=== PATIENT | female | born 1955 | race Hispanic/Latino ===

== ENCOUNTER 2016-11-01 16:42 | Inpatient (IN) | payer MEDICARE, MEDICAID ==
[2016-11-01 18:48] VITALS: BMI 28.9
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
[2016-11-01] MEDS: Acetylcysteine 20% Inhal Soln (4ml) IH SCH (19:37)
[2016-11-01] MEDS: Levalbuterol 0.63 MG/3 ML Inhal Soln UD IH SCH (19:37)
[2016-11-02] MEDS: Acetylcysteine 20% Inhal Soln (4ml) IH SCH ×5 (00:08→20:26)
[2016-11-02] MEDS: Levalbuterol 0.63 MG/3 ML Inhal Soln UD IH SCH ×5 (00:09→20:26)
[2016-11-02 07:30] LABS: HEMATOCRIT 36.8 % (34.0-47.0); MEAN CORPUSCULAR HGB CONC 34.4 g/dL (33.0-37.0); RED CELL DISTRIBUTION WIDTH 14.5 % (11.5-14.5); WHITE BLOOD COUNT 10.7 K/uL (4.8-10.8)
[2016-11-02 07:37] LABS: CALCIUM 9.6 mg/dL (8.4-10.2); POTASSIUM 3.9 MMOL/L (3.6-5.0)
[2016-11-02] MEDS: Magnesium Oxide 400 mg Tab UD PO SCH (08:11)
--- NOTE | 2016-11-02 13:23 | CP.PCM.PN ---
Subjective - Date & Time of Evaluation Date of Evaluation: 11/02/16 Time of Evaluation: 12:00 - Subjective Subjective: no acute complaints at present Objective - Vital Signs/Intake and Output Vital Signs (last 24 hours): Temp Pulse Resp BP Pulse Ox 97.9 F 80 20 120/58 L 96 11/01/16 20:34 11/02/16 08:57 11/01/16 20:34 11/02/16 13:08 11/02/16 08:57 - Medications Medications: Current Medications Acetaminophen (Tylenol 325mg Tab) 650 mg PO Q6 PRN PRN Reason: Fever >100.4 F Acetaminophen (Tylenol 325mg Tab) 650 mg PO Q6 PRN PRN Reason: .Pain (scale 4-10) or Headache Last Admin: 11/01/16 22:24 Dose: 650 mg Acetylcysteine (Acetylcysteine 20%) 4 ml IH RQ6 [facility] Last Admin: 11/02/16 07:22 Dose: Not Given Alprazolam (Xanax) 0.25 mg PO Q12 [facility] Stop: 11/08/16 19:11 Last Admin: 11/02/16 08:14 Dose: 0.25 mg Amlodipine Besylate (Norvasc) 5 mg PO DAILY [facility] Last Admin: 11/02/16 08:15 Dose: 5 mg Atorvastatin Calcium (Lipitor) 40 mg PO HS [facility] Last Admin: 11/01/16 21:53 Dose: 40 mg Cholecalciferol (Vitamin D) 2,000 iu PO DAILY [facility] Last Admin: 11/02/16 08:11 Dose: 2,000 iu Clonidine HCl (Catapres) 0.1 mg PO Q12 [facility] Last Admin: 11/02/16 10:00 Dose: 0.1 mg Hydralazine HCl (Apresoline) 100 mg PO Q8 [facility] Last Admin: 11/02/16 13:08 Dose: 100 mg Levalbuterol HCl (Xopenex) 0.63 mg IH RQ6 [facility] Last Admin: 11/02/16 07:22 Dose: Not Given Levetiracetam (Keppra) 500 mg PO BID [facility] Last Admin: 11/02/16 08:10 Dose: 500 mg Magnesium Oxide (Mag-Ox) 400 mg PO DAILY [facility] Last Admin: 11/02/16 08:11 Dose: 400 mg Metoprolol Tartrate (Lopressor) 25 mg PO Q12 [facility] Last Admin: 11/02/16 08:15 Dose: 25 mg - Labs Labs: 11/02/16 06:25 11/02/16 06:25 - Head Exam Head Exam: ATRAUMATIC, NORMAL INSPECTION, NORMOCEPHALIC - Eye Exam Eye Exam: EOMI, Normal appearance, PERRL Pupil Exam: NORMAL ACCOMODATION - ENT Exam ENT Exam: Mucous Membranes Moist, Normal Exam - Respiratory Exam Respiratory Exam: NORMAL BREATHING PATTERN - Cardiovascular Exam Cardiovascular Exam: REGULAR RHYTHM - GI/Abdominal Exam GI & Abdominal Exam: Soft, Normal Bowel Sounds - Exam External exam: NORMAL EXTERNAL EXAM - Extremities Exam Extremities Exam: Normal Capillary Refill - Back Exam Back Exam: NORMAL INSPECTION - Neurological Exam Neurological Exam: Alert, Awake Neuro motor strength exam: Left Upper Extremity: 3, Right Upper Extremity: 3, Left Lower Extremity: 3, Right Lower Extremity: 3 - Psychiatric Exam Psychiatric exam: Normal Affect, Normal Mood - Skin Skin Exam: Dry, Intact, Normal Color Assessment and Plan (1) Abdominal pain Status: Acute (2) Altered mental state Status: Acute (3) Intracranial hemorrhage Assessment & Plan: Pt, Ot therapy and plan of care and rec therapy Status: Acute (4) Leukocytosis Status: Acute (5) NSTEMI (non-ST elevated myocardial infarction) Status: Acute (6) Chronic obstructive lung disease Status: Chronic (7) Syncope Status: Suspected Physiatry Overall Plan of Care - Overall Plan of Care Estimated Length of Stay in Weeks: 2 Rehab Impairment: Mobility, Gait, Cognition, Balance, Coordination Etiologic Diagnosis: Other Rehab/Medical Prognosis: Fair - Anticipated Interventions Physical Therapy:: Yes Occupational Therapy:: Yes Speech Therapy:: Yes Recreational Therapy:: Yes Other Anticipated Intervention:: Yes - Therapy Goals Bed Mobility: Independent Ambulation: Independent Functional Positional Changes:: Independent - Discharge Plan Discharge Destination: Home
--- NOTE | 2016-11-02 17:51 | PN ---
DATE: Please verify the document type. PHYSIATRY CONSULTATION SUBJECTIVE: The patient is a friendly 61-year-old female admitted for acute inpatient rehab program. The patient with the diagnosis of intracranial hemorrhage, ICD code of 02.9, history of COPD, rhabdomyolysis, also NSTEMI, coronary artery disease, hypertension, low back pain, depression, diverticulitis. ALLERGIES: TO CORTISONE AND ZOLPIDEM. SOCIAL HISTORY: No history of drinking. No history of smoking. FAMILY HISTORY: Noncontributory. FUNCTIONAL STATUS: The patient is living alone in apartment with five steps to enter, had home healthy aid to assist with ADLs. MEDICATIONS: As per medical physician. REVIEW OF SYSTEMS: GENERAL: The patient is alert, able to follow commands. No acute distress. VITAL SIGNS: Stable. NECK: Supple. CHEST: Symmetrical. HEART: Sounds S1 and S2. ABDOMEN: Benign. EXTREMITIES: No clubbing, cyanosis or edema. NEUROLOGIC: The patient is alert, able to follow commands. Cranial nerves II and XII grossly intact. Motor both upper, both lower extremities. Tone normal range motion as functional. Muscle strength is good. Sensation to pin prick and light touch intact. Deep tendon reflexes 2+ bilaterally. Other systems are negative. IMPRESSION: Intracranial hemorrhage, ICD code of 02.9, chronic obstructive pulmonary disease, coronary artery disease, hypertension, gait difficulty, depression, diverticulosis. PLAN: The patient is physical therapy, occupational therapy, recreational therapy, speech therapy. Estimated length of stay for this patient is 2-3 weeks and has better discharge plan, he is to go back to live at home with supportive services, goals, independent to supervision for the patient write further overall plan of care. Keron Wilson MD
[2016-11-03] MEDS: Acetylcysteine 20% Inhal Soln (4ml) IH SCH ×4 (01:35→19:13)
[2016-11-03] MEDS: Levalbuterol 0.63 MG/3 ML Inhal Soln UD IH SCH ×4 (01:36→19:13)
[2016-11-03] MEDS: Magnesium Oxide 400 mg Tab UD PO SCH (08:44)
--- NOTE | 2016-11-03 12:14 | PSY.TMCNF ---
Nursing - Vital Signs Vital Signs (Last 8 hours): Vital Signs 11/03/16 11/03/16 11/03/16 05:31 08:26 08:44 Pulse Rate 60 73 73 Respiratory 18 Rate Blood Pressure 136/60 147/81 147/81 O2 Sat by Pulse Oximetry 11/03/16 11/03/16 08:45 08:57 Pulse Rate 74 Respiratory Rate Blood Pressure 147/81 O2 Sat by Pulse 97 Oximetry Pain: 2 - Medications/Other Issues Comment: To follow as per nutrition protocol - Bladder Management Bladder Pattern: Normal Voiding Method: Toilet - Bowel Management Bowel Pattern: Normal - Goals/Time Frame Comments: Pt was seen awake and alert laying in bed. Pt agreeable to receive visit. Pt reported that she is very cold and at times was shivering. Earlier during therapy session, pt refused sweatshirt as pt reported, "It smelt weird." Pt had two blankets wrapped around her as well. Pt was able to initiate minimal leisure interests as pt reported all she does at home is watch television. Pt reported that she is having difficulty seeing anything as her reading glasses are missing. Pt continued to state, "It is frustrated not remembering a lot of things." Pt presented with flat affect although engaged in discussion throughout visit. Physical Therapy - Bed Mobility Bed Mobility: Verbal Cues, Minimal Assistance - Transfers Sit to Stand: Verbal Cues, Contact Guard, Minimal Assistance - Ambulation Level of Assistance: Minimal Assistance Distance (ft.): 75 Assistive Devices: Rolling Walker - Stair Negotiation Stairs: Level of Assistance: Verbal Cues, Minimal Assistance Handrails: Bilateral - Standing Balance Static Stand: Contact Guard Assist Dynamic Stand: Minimal Assistance - Pain Management Techniques: Medication - Insight/Carryover Insight/Carryover: Fair - Patient/Family Education Comment: Pt education provided for improved safety awareness and proper techniques during functional mobility skills - Assessment/Plan Assessment: Pt was oriented to the benefits and purpose of participating in recreation therapy sessions throughout stay on unit. Pt presents with anxiety, decrease mood state, and stated that she has deficits with memory. Pt would benefit from recreation therapy sessions to improve mood state and leisure awareness level. - Goals Goals: Transfers with CGA. UB dressing with CGA. LB dressing with ModA - Provider Therapist: anselmo License Number: [id number] Occupational Therapy - Arousal/Attention/Orientation Patient Orientation: Person, Place, Time, Appropriate to Age, Appropriate to Situation - ADL/IADL Self Feeding: Supervision, Set-up Help Grooming: Minimal Assistance Dressing-Upper Extremity: Minimal Assistance, Moderate Assistance Dressing-Lower Extremity: Maximum Assistance - Sitting Balance Static Sitting: Supervision Dynamic Sitting: Requires supervision - Transfers Wheelchair to Bed Transfers: Minimal Assistance Toilet Transfers: Minimal Assistance - Pain Alleviating Techniques: Medication - Insight/Carryover Insight/Carryover: Fair - Patient/Family Education Comment: Pt education provided for improved safety awareness and proper techniques during functional mobility skills - Assessment/Plan Assessment: Pt was oriented to the benefits and purpose of participating in recreation therapy sessions throughout stay on unit. Pt presents with anxiety, decrease mood state, and stated that she has deficits with memory. Pt would benefit from recreation therapy sessions to improve mood state and leisure awareness level. - Goals Goals: Transfers with CGA. UB dressing with CGA. LB dressing with ModA - Provider Therapist: Richar PARKER/aBiley License Number: [id number] Speech Therapy - Consult Information Patient on Program: Yes Medical Diagnosis: ICH Treatment Diagnosis: mild cognitive deficits - Assessment Problem Solving Impairment: Mild Memory Impairment: Mild - Plan Assessment: Pt was oriented to the benefits and purpose of participating in recreation therapy sessions throughout stay on unit. Pt presents with anxiety, decrease mood state, and stated that she has deficits with memory. Pt would benefit from recreation therapy sessions to improve mood state and leisure awareness level. - Provider Therapist: Coreen Amaral License Number: [id number] Recreational Therapy - Participation Participation: Monitors His/Her Own Leisure Time - Attendance Attendance: Daily - Activities Leisure Activities: Television - Socialization Level of Socialization: Initiates/interacts with caregivers but not with peer, Isolate by choice - Diversional Time Diversional Time: television - Assessment Assessment/Plan: Pt was oriented to the benefits and purpose of participating in recreation therapy sessions throughout stay on unit. Pt presents with anxiety , decrease mood state, and stated that she has deficits with memory. Pt would benefit from recreation therapy sessions to improve mood state and leisure awareness level. Problems Currently Limiting Participation: depression, anxiety, decrease leisure awareness level, decrease initiation, decrease mood state, decrease recall Goals and Time Frame: Pt will be encouraged to participate in 1:1 and group recreation therapy sessions 3-5x week to improve arousal level, mood state, leisure wareness level, and word finding. - Provider Therapist: Shanti Diaz, [employer] #[id number] Nutrition - Current Diet Current Diet/ Supplement/ Feedings: Heart healthy diet - Appetite Percent Meal Consumed: 50-74% - Assessment/Goals/Time Frame Assessment/Goals/Time Frame: To follow as per nutrition protocol - Provider Provider: Zenaida Morales RD Case Management - Discharge Plan Discharge Plan: Home alone, Home with significant other/family Rehabilitation Plan - Treatment Plan Treatment Plan: Physical Therapy, Occupational Therapy, Speech, Dietary, Patient /Family Education - Recommendation Recommendation: Physical Therapy, Occupational Therapy, Speech, Dietary, Patient /Family Education - Discharge Plan Discharge to: Home
--- NOTE | 2016-11-03 15:07 | CP.PCM.PN ---
Subjective - Date & Time of Evaluation Date of Evaluation: 11/03/16 Time of Evaluation: 14:00 - Subjective Subjective: no acute complaints at present Objective - Vital Signs/Intake and Output Vital Signs (last 24 hours): Temp Pulse Resp BP Pulse Ox 98.2 F 61 18 125/64 97 11/02/16 21:17 11/03/16 13:14 11/03/16 08:26 11/03/16 13:14 11/03/16 08:57 - Medications Medications: Current Medications Acetaminophen (Tylenol 325mg Tab) 650 mg PO Q6 PRN PRN Reason: Fever >100.4 F Acetaminophen (Tylenol 325mg Tab) 650 mg PO Q6 PRN PRN Reason: .Pain (scale 4-10) or Headache Last Admin: 11/03/16 05:30 Dose: 650 mg Acetylcysteine (Acetylcysteine 20%) 4 ml IH RQ6 [facility] Last Admin: 11/03/16 14:01 Dose: Not Given Alprazolam (Xanax) 0.25 mg PO Q12 [facility] Stop: 11/08/16 19:11 Last Admin: 11/03/16 08:46 Dose: 0.25 mg Amlodipine Besylate (Norvasc) 5 mg PO DAILY [facility] Last Admin: 11/03/16 08:45 Dose: 5 mg Atorvastatin Calcium (Lipitor) 40 mg PO HS [facility] Last Admin: 11/02/16 21:23 Dose: 40 mg Cholecalciferol (Vitamin D) 2,000 iu PO DAILY [facility] Last Admin: 11/03/16 08:45 Dose: 2,000 iu Clonidine HCl (Catapres) 0.1 mg PO Q12 [facility] Last Admin: 11/03/16 08:44 Dose: 0.1 mg Hydralazine HCl (Apresoline) 100 mg PO Q8 [facility] Last Admin: 11/03/16 13:14 Dose: 100 mg Levalbuterol HCl (Xopenex) 0.63 mg IH RQ6 [facility] Last Admin: 11/03/16 14:02 Dose: Not Given Levetiracetam (Keppra) 500 mg PO BID [facility] Last Admin: 11/03/16 08:43 Dose: 500 mg Magnesium Oxide (Mag-Ox) 400 mg PO DAILY [facility] Last Admin: 11/03/16 08:44 Dose: 400 mg Metoprolol Tartrate (Lopressor) 25 mg PO Q12 [facility] Last Admin: 11/03/16 08:44 Dose: 25 mg - Labs Labs: 11/02/16 06:25 11/02/16 06:25 - Head Exam Head Exam: ATRAUMATIC, NORMAL INSPECTION, NORMOCEPHALIC - Eye Exam Eye Exam: EOMI, Normal appearance, PERRL Pupil Exam: NORMAL ACCOMODATION - ENT Exam ENT Exam: Mucous Membranes Moist, Normal Exam - Neck Exam Neck Exam: Normal Inspection - Respiratory Exam Respiratory Exam: NORMAL BREATHING PATTERN - Cardiovascular Exam Cardiovascular Exam: REGULAR RHYTHM - GI/Abdominal Exam GI & Abdominal Exam: Soft, Normal Bowel Sounds - Rectal Exam Rectal Exam: NORMAL INSPECTION - Exam External exam: NORMAL EXTERNAL EXAM - Extremities Exam Extremities Exam: Normal Capillary Refill, Normal Inspection - Back Exam Back Exam: NORMAL INSPECTION - Neurological Exam Neurological Exam: Alert, Awake Neuro motor strength exam: Left Upper Extremity: 3, Right Upper Extremity: 3, Left Lower Extremity: 3, Right Lower Extremity: 3 - Psychiatric Exam Psychiatric exam: Normal Affect, Normal Mood - Skin Skin Exam: Dry Assessment and Plan (1) Abdominal pain Status: Acute (2) Altered mental state Status: Acute (3) Intracranial hemorrhage Assessment & Plan: plan for pt, ot , rec for team conference Status: Acute (4) Leukocytosis Status: Acute (5) NSTEMI (non-ST elevated myocardial infarction) Status: Acute (6) Chronic obstructive lung disease Status: Chronic (7) Syncope Status: Suspected
--- NOTE | 2016-11-03 19:20 | CP.PCM.PN ---
Subjective - Date & Time of Evaluation Date of Evaluation: 11/03/16 Time of Evaluation: 11:30 - Subjective Subjective: Pt seen and examined. Noted to have memory lapses aside from her left sided weakness. Unable to remember when she had the stroke. Objective - Vital Signs/Intake and Output Vital Signs (last 24 hours): Temp Pulse Resp BP Pulse Ox 98.2 F 61 18 125/64 97 11/02/16 21:17 11/03/16 13:14 11/03/16 08:26 11/03/16 13:14 11/03/16 08:57 - Medications Medications: Current Medications Acetaminophen (Tylenol 325mg Tab) 650 mg PO Q6 PRN PRN Reason: Fever >100.4 F Acetaminophen (Tylenol 325mg Tab) 650 mg PO Q6 PRN PRN Reason: .Pain (scale 4-10) or Headache Last Admin: 11/03/16 05:30 Dose: 650 mg Acetylcysteine (Acetylcysteine 20%) 4 ml IH RQ6 [facility] Last Admin: 11/03/16 19:13 Dose: Not Given Alprazolam (Xanax) 0.25 mg PO Q12 [facility] Stop: 11/08/16 19:11 Last Admin: 11/03/16 08:46 Dose: 0.25 mg Amlodipine Besylate (Norvasc) 5 mg PO DAILY [facility] Last Admin: 11/03/16 08:45 Dose: 5 mg Atorvastatin Calcium (Lipitor) 40 mg PO HS [facility] Last Admin: 11/02/16 21:23 Dose: 40 mg Cholecalciferol (Vitamin D) 2,000 iu PO DAILY [facility] Last Admin: 11/03/16 08:45 Dose: 2,000 iu Clonidine HCl (Catapres) 0.1 mg PO Q12 [facility] Last Admin: 11/03/16 08:44 Dose: 0.1 mg Hydralazine HCl (Apresoline) 100 mg PO Q8 [facility] Last Admin: 11/03/16 13:14 Dose: 100 mg Levalbuterol HCl (Xopenex) 0.63 mg IH RQ6 [facility] Last Admin: 11/03/16 19:13 Dose: Not Given Levetiracetam (Keppra) 500 mg PO BID [facility] Last Admin: 11/03/16 17:09 Dose: 500 mg Magnesium Oxide (Mag-Ox) 400 mg PO DAILY [facility] Last Admin: 11/03/16 08:44 Dose: 400 mg Metoprolol Tartrate (Lopressor) 25 mg PO Q12 [facility] Last Admin: 11/03/16 08:44 Dose: 25 mg - Labs Labs: 11/02/16 06:25 11/02/16 06:25 - Constitutional Appears: No Acute Distress - Head Exam Head Exam: ATRAUMATIC - Eye Exam Eye Exam: absent: Scleral icterus - ENT Exam ENT Exam: Mucous Membranes Moist - Neck Exam Neck Exam: absent: Meningismus - Respiratory Exam Respiratory Exam: absent: Rhonchi, Wheezes, Respiratory Distress - Cardiovascular Exam Cardiovascular Exam: REGULAR RHYTHM, +S1, +S2 - GI/Abdominal Exam GI & Abdominal Exam: Soft. absent: Tenderness - Rectal Exam Rectal Exam: Deferred - Neurological Exam Neurological Exam: Alert - Psychiatric Exam Psychiatric exam: Normal Affect - Skin Skin Exam: Dry, Intact Assessment and Plan - Assessment and Plan (Free Text) Plan: 61 yo female with history of COPD, CAD, HTN, Chronic Kidney Disease and Depression admitted at [facility] because of Acute Right Parietal hemorrhage sustained after a fall. She was transferred to [facility] to continue PT/ OT in Acute Rehab. 1. Right Parietal Hematoma continue Keppra 500mg PO BID for seizure prophylaxis neurology and neurosurgion consulted and no surgical evacuation was deemed necessary continue PT/OT 2. COPD asymptomatic Xopenex via nebulizer as needed 3. HTN BP stable continue Norvasc, Clonidine, Hydralazine and Metoprolol 4. HLD continue Lipitor 40mg PO HS 5. CKD Creatinine stable at 1.5 6. CAD continue Metoprolol and Lipitor antiplatelets held because of cerebral hematoma
[2016-11-04] MEDS: Levalbuterol 0.63 MG/3 ML Inhal Soln UD IH SCH ×4 (01:02→19:31)
[2016-11-04] MEDS: Acetylcysteine 20% Inhal Soln (4ml) IH SCH ×4 (01:02→19:31)
[2016-11-04] MEDS: Pantoprazole 40 mg EC Tab PO SCH ×2 (08:46→17:06)
[2016-11-04] MEDS: Magnesium Oxide 400 mg Tab UD PO SCH (08:49)
--- NOTE | 2016-11-04 13:55 | CP.PCM.PN ---
Subjective - Date & Time of Evaluation Date of Evaluation: 11/04/16 Time of Evaluation: 11:30 - Subjective Subjective: no acute complaints at present Objective - Vital Signs/Intake and Output Vital Signs (last 24 hours): Temp Pulse Resp BP Pulse Ox 97.9 F 56 L 20 157/78 H 97 11/04/16 08:23 11/04/16 10:42 11/04/16 08:23 11/04/16 08:49 11/04/16 10:42 - Medications Medications: Current Medications Acetaminophen (Tylenol 325mg Tab) 650 mg PO Q6 PRN PRN Reason: Fever >100.4 F Acetaminophen (Tylenol 325mg Tab) 650 mg PO Q6 PRN PRN Reason: .Pain (scale 4-10) or Headache Last Admin: 11/04/16 05:25 Dose: 650 mg Acetylcysteine (Acetylcysteine 20%) 4 ml IH RQ6 [facility] Last Admin: 11/04/16 08:00 Dose: Not Given Alprazolam (Xanax) 0.25 mg PO DAILY [facility] Stop: 11/12/16 09:01 Amlodipine Besylate (Norvasc) 5 mg PO DAILY [facility] Last Admin: 11/04/16 08:49 Dose: 5 mg Atorvastatin Calcium (Lipitor) 40 mg PO HS [facility] Last Admin: 11/03/16 21:43 Dose: 40 mg Cholecalciferol (Vitamin D) 2,000 iu PO DAILY [facility] Last Admin: 11/04/16 08:49 Dose: 2,000 iu Clonidine HCl (Catapres) 0.1 mg PO Q12 [facility] Last Admin: 11/04/16 08:48 Dose: 0.1 mg Hydralazine HCl (Apresoline) 100 mg PO Q8 [facility] Last Admin: 11/04/16 05:30 Dose: 100 mg Levalbuterol HCl (Xopenex) 0.63 mg IH RQ6 [facility] Last Admin: 11/04/16 08:00 Dose: Not Given Levetiracetam (Keppra) 500 mg PO BID [facility] Last Admin: 11/04/16 08:48 Dose: 500 mg Magnesium Oxide (Mag-Ox) 400 mg PO DAILY [facility] Last Admin: 11/04/16 08:49 Dose: 400 mg Metoprolol Tartrate (Lopressor) 25 mg PO Q12 [facility] Last Admin: 11/04/16 08:46 Dose: 25 mg Pantoprazole Sodium (Protonix Ec Tab) 40 mg PO BID [facility] Last Admin: 11/04/16 08:46 Dose: 40 mg Temazepam (Restoril) 15 mg PO HS PRN PRN Reason: Insomnia - Labs Labs: 11/02/16 06:25 11/02/16 06:25 - Head Exam Head Exam: ATRAUMATIC, NORMAL INSPECTION, NORMOCEPHALIC - Eye Exam Eye Exam: EOMI, Normal appearance, PERRL Pupil Exam: NORMAL ACCOMODATION - ENT Exam ENT Exam: Mucous Membranes Moist, Normal Exam - Neck Exam Neck Exam: Normal Inspection - Respiratory Exam Respiratory Exam: NORMAL BREATHING PATTERN - Cardiovascular Exam Cardiovascular Exam: REGULAR RHYTHM - GI/Abdominal Exam GI & Abdominal Exam: Normal Bowel Sounds - Rectal Exam Rectal Exam: NORMAL INSPECTION - Exam External exam: NORMAL EXTERNAL EXAM - Extremities Exam Extremities Exam: Normal Capillary Refill, Normal Inspection - Back Exam Back Exam: NORMAL INSPECTION - Neurological Exam Neurological Exam: Alert, Awake Neuro motor strength exam: Left Upper Extremity: 3, Right Upper Extremity: 3, Left Lower Extremity: 3, Right Lower Extremity: 3 - Psychiatric Exam Psychiatric exam: Normal Affect, Normal Mood - Skin Skin Exam: Dry Assessment and Plan (1) Abdominal pain Status: Acute (2) Altered mental state Status: Acute (3) Intracranial hemorrhage Assessment & Plan: physical, occupational, rec therapy monitor monitor bowels, skin Status: Acute (4) Leukocytosis Status: Acute (5) NSTEMI (non-ST elevated myocardial infarction) Status: Acute (6) Chronic obstructive lung disease Status: Chronic (7) Syncope Status: Suspected
[2016-11-05] MEDS: Acetylcysteine 20% Inhal Soln (4ml) IH SCH ×4 (01:05→19:17)
[2016-11-05] MEDS: Levalbuterol 0.63 MG/3 ML Inhal Soln UD IH SCH ×4 (01:06→19:17)
[2016-11-05] MEDS: Pantoprazole 40 mg EC Tab PO SCH ×2 (08:31→16:58)
[2016-11-05] MEDS: Magnesium Oxide 400 mg Tab UD PO SCH (08:31)
--- NOTE | 2016-11-05 10:03 | CP.PCM.CON ---
History of Present Illness - History of Present Illness History of Present Illness: Pt is a 61 year old female admitted to [facility] and referred to the blog writer for evaluation. Med history positive for recent CVA/fall. pt also reported history of COPD and HTN. See medical record for compete medical history and medications. Social History Pt lives alone. She was in 2012. Pt 2x, was and then . Pt has two children, one in [place] , and another in [place], 4 grandchildren. Pt reported positive relationships with family . Ed/Voc: pt raised in [place], left HS to work. 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 Psych- pt reported a history of depression and treatment with Wellbutrin. No recent psych treatment. Pt denied a history of alc/substance . Pt spoke of time spent at home watching TV. She is also helped by a homemaker 35+ hours weekly. MSE: Pt alert, oriented x2, relevant/cohrent, no psychosis affect constricted, mood dysphoric. pt spoke of desire for recovery and return home. Pt concerned with apt at present with fear of eviction. Social work alerted/aware. Dx: Adjustment DX with depresson plan: Continued Sup therapy 715-7:35 AM Past Patient History - Infectious Disease Hx of Infectious Diseases: None - Tetanus Immunizations Tetanus Immunization: Unknown - Past Medical History & Family History Past Medical History?: Yes - Past Social History Smoking Status: Quit - CARDIAC Hx Cardiac Disorders: Yes Hx Hypertension: Yes - PULMONARY Hx Chronic Obstructive Pulmonary Disease (COPD): Yes - NEUROLOGICAL Hx Neurological Disorder: Yes (10/27/16 Intracranial hemorrhage) - HEENT Hx HEENT Problems: Yes Other/Comment: Wears glasses for reading and distance - RENAL Hx Chronic Kidney Disease: Yes (Chronic kidney disease) - ENDOCRINE/METABOLIC Hx Endocrine Disorders: No - HEMATOLOGICAL/ONCOLOGICAL Hx Anemia: Yes - INTEGUMENTARY Hx Dermatological Problems: No - MUSCULOSKELETAL/RHEUMATOLOGICAL Hx Falls: Yes Hx Rhabdomyolysis: Yes Other/Comment: - Chronic back pain - GASTROINTESTINAL Hx Gastrointestinal Disorders: Yes Hx Colostomy: Yes (had colostomy reveral) Other/Comment: - Diverticulitis. - Fistula. - Small bowel obstruction. - GERD. - Colitis - GENITOURINARY/GYNECOLOGICAL Hx Genitourinary Disorders: No (UTI) Hx Reproductive Disorders: No - PSYCHIATRIC Hx Anxiety: Yes Hx Depression: Yes Other/Comment: - Hx. of overuse of opiates/benzodiazipines for pain/anxiety - SURGICAL HISTORY Hx Surgeries: Yes Other/Comment: - Colostomy. - Colostomy reversal. - Hernia repair. - Spinal ( low back) surgery - ANESTHESIA Hx Anesthesia: Yes Hx Anesthesia Reactions: No Hx Malignant Hyperthermia: No Has any member of the family had a problem w/ anesthesia?: No Meds Allergies/Adverse Reactions: Allergies Allergy/AdvReac Type Severity Reaction Status Date / Time cortisone Allergy Severe PAIN Verified 11/02/16 00:41 zolpidem Allergy Severe Severe Verified 11/02/16 00:41 nightmares - Medications Medications: Current Medications Acetaminophen (Tylenol 325mg Tab) 650 mg PO Q6 PRN PRN Reason: Fever >100.4 F Acetaminophen (Tylenol 325mg Tab) 650 mg PO Q6 PRN PRN Reason: .Pain (scale 4-10) or Headache Last Admin: 11/05/16 09:31 Dose: 650 mg Acetylcysteine (Acetylcysteine 20%) 4 ml IH RQ6 [facility] Last Admin: 11/05/16 07:53 Dose: Not Given Alprazolam (Xanax) 0.25 mg PO DAILY [facility] Stop: 11/12/16 09:01 Last Admin: 11/05/16 08:33 Dose: 0.25 mg Amlodipine Besylate (Norvasc) 5 mg PO DAILY [facility] Last Admin: 11/05/16 08:31 Dose: 5 mg Atorvastatin Calcium (Lipitor) 40 mg PO HS [facility] Last Admin: 11/04/16 21:31 Dose: 40 mg Cholecalciferol (Vitamin D) 2,000 iu PO DAILY [facility] Last Admin: 11/05/16 08:32 Dose: 2,000 iu Clonidine HCl (Catapres) 0.1 mg PO Q12 [facility] Last Admin: 11/05/16 08:26 Dose: 0.1 mg Hydralazine HCl (Apresoline) 100 mg PO Q8 [facility] Last Admin: 11/05/16 06:06 Dose: 100 mg Levalbuterol HCl (Xopenex) 0.63 mg IH RQ6 [facility] Last Admin: 11/05/16 07:53 Dose: Not Given Levetiracetam (Keppra) 500 mg PO BID [facility] Last Admin: 11/05/16 08:27 Dose: 500 mg Magnesium Oxide (Mag-Ox) 400 mg PO DAILY [facility] Last Admin: 11/05/16 08:31 Dose: 400 mg Metoprolol Tartrate (Lopressor) 25 mg PO Q12 [facility] Last Admin: 11/05/16 08:30 Dose: 25 mg Pantoprazole Sodium (Protonix Ec Tab) 40 mg PO BID [facility] Last Admin: 11/05/16 08:31 Dose: 40 mg Temazepam (Restoril) 15 mg PO HS PRN PRN Reason: Insomnia Last Admin: 11/04/16 21:30 Dose: 15 mg Results - Vital Signs Recent Vital Signs: Last Vital Signs Temp 97.7 F 11/05/16 08:01 Pulse 72 11/05/16 08:31 Resp 18 11/05/16 08:01 BP 141/52 L 11/05/16 08:31 Pulse Ox 100 11/05/16 08:01 - Labs Result Diagrams: 11/02/16 06:25 11/02/16 06:25
--- NOTE | 2016-11-05 17:12 | CP.PCM.PN ---
Subjective - Date & Time of Evaluation Date of Evaluation: 11/05/16 Time of Evaluation: 11:00 - Subjective Subjective: Pt seen and examined. Still complaining of insomnia. Restoril apparently did not work Objective - Vital Signs/Intake and Output Vital Signs (last 24 hours): Temp Pulse Resp BP Pulse Ox 97.7 F 65 18 133/75 100 11/05/16 08:01 11/05/16 14:48 11/05/16 08:01 11/05/16 14:48 11/05/16 08:01 - Medications Medications: Current Medications Acetaminophen (Tylenol 325mg Tab) 650 mg PO Q6 PRN PRN Reason: Fever >100.4 F Acetaminophen (Tylenol 325mg Tab) 650 mg PO Q6 PRN PRN Reason: .Pain (scale 4-10) or Headache Last Admin: 11/05/16 09:31 Dose: 650 mg Acetylcysteine (Acetylcysteine 20%) 4 ml IH RQ6 [facility] Last Admin: 11/05/16 13:18 Dose: Not Given Alprazolam (Xanax) 0.25 mg PO DAILY [facility] Stop: 11/12/16 09:01 Last Admin: 11/05/16 08:33 Dose: 0.25 mg Amlodipine Besylate (Norvasc) 5 mg PO DAILY [facility] Last Admin: 11/05/16 08:31 Dose: 5 mg Atorvastatin Calcium (Lipitor) 40 mg PO HS [facility] Last Admin: 11/04/16 21:31 Dose: 40 mg Cholecalciferol (Vitamin D) 2,000 iu PO DAILY [facility] Last Admin: 11/05/16 08:32 Dose: 2,000 iu Clonidine HCl (Catapres) 0.1 mg PO Q12 [facility] Last Admin: 11/05/16 08:26 Dose: 0.1 mg Hydralazine HCl (Apresoline) 100 mg PO Q8 [facility] Last Admin: 11/05/16 14:48 Dose: 100 mg Levalbuterol HCl (Xopenex) 0.63 mg IH RQ6 [facility] Last Admin: 11/05/16 13:18 Dose: Not Given Levetiracetam (Keppra) 500 mg PO BID [facility] Last Admin: 11/05/16 16:58 Dose: 500 mg Magnesium Oxide (Mag-Ox) 400 mg PO DAILY [facility] Last Admin: 08/25/17 08:31 Dose: 400 mg Metoprolol Tartrate (Lopressor) 25 mg PO Q12 [facility] Last Admin: 11/05/16 08:30 Dose: 25 mg Pantoprazole Sodium (Protonix Ec Tab) 40 mg PO BID [facility] Last Admin: 11/05/16 16:58 Dose: 40 mg Temazepam (Restoril) 15 mg PO HS PRN PRN Reason: Insomnia Last Admin: 11/04/16 21:30 Dose: 15 mg - Labs Labs: 11/02/16 06:25 11/02/16 06:25 - Constitutional Appears: No Acute Distress - Head Exam Head Exam: ATRAUMATIC - Eye Exam Eye Exam: absent: Scleral icterus - ENT Exam ENT Exam: Mucous Membranes Moist - Neck Exam Neck Exam: absent: Meningismus - Cardiovascular Exam Cardiovascular Exam: REGULAR RHYTHM, +S1, +S2 - GI/Abdominal Exam GI & Abdominal Exam: Soft. absent: Tenderness - Rectal Exam Rectal Exam: Deferred - Neurological Exam Neurological Exam: Alert, Oriented x3 - Psychiatric Exam Psychiatric exam: Flat Affect - Skin Skin Exam: Dry, Intact Assessment and Plan - Assessment and Plan (Free Text) Assessment: 61 yo female with history of COPD, CAD, HTN, Chronic Kidney Disease and Depression admitted at [facility] because of Acute Right Parietal hemorrhage sustained after a fall. She was transferred to [facility] for continuation of PT/OT in Acute Rehab. 1. Right Parietal Hematoma continue Keppra 500mg PO BID for seizure prophylaxis neurology and neurosurgion were consulted and no surgical intervention was recommended continue PT/OT 2. COPD asymptomatic Xopenex via nebulizer as needed 3. HTN BP stable continue Norvasc, Clonidine, Hydralazine and Metoprolol 4. HLD continue Lipitor 40mg PO HS 5. CKD Creatinine stable at 1.5 6. CAD continue Metoprolol and Lipitor antiplatelets held because of cerebral hematoma
[2016-11-06] MEDS: Levalbuterol 0.63 MG/3 ML Inhal Soln UD IH SCH ×4 (02:00→19:21)
[2016-11-06] MEDS: Acetylcysteine 20% Inhal Soln (4ml) IH SCH ×4 (02:00→19:21)
[2016-11-06] MEDS: Pantoprazole 40 mg EC Tab PO SCH ×2 (08:54→17:09)
[2016-11-06] MEDS: Magnesium Oxide 400 mg Tab UD PO SCH (08:56)
[2016-11-07] MEDS: Acetylcysteine 20% Inhal Soln (4ml) IH SCH ×3 (01:07→13:20)
[2016-11-07] MEDS: Levalbuterol 0.63 MG/3 ML Inhal Soln UD IH SCH ×3 (07:25→19:23)
[2016-11-07] MEDS: Magnesium Oxide 400 mg Tab UD PO SCH (08:57)
[2016-11-07] MEDS: Pantoprazole 40 mg EC Tab PO SCH ×2 (08:57→17:16)
--- NOTE | 2016-11-07 11:07 | CP.PCM.PN ---
Subjective - Date & Time of Evaluation Date of Evaluation: 11/07/16 Time of Evaluation: 10:20 - Subjective Subjective: Pt seen and examined. Denied any complaint. Able to sleep well last night Objective - Vital Signs/Intake and Output Vital Signs (last 24 hours): Temp Pulse Resp BP Pulse Ox 98.0 F 79 19 150/76 95 11/07/16 08:29 11/07/16 08:58 11/07/16 08:29 11/07/16 08:58 11/07/16 08:29 - Medications Medications: Current Medications Acetaminophen (Tylenol 325mg Tab) 650 mg PO Q6 PRN PRN Reason: Fever >100.4 F Acetaminophen (Tylenol 325mg Tab) 650 mg PO Q6 PRN PRN Reason: .Pain (scale 4-10) or Headache Last Admin: 11/07/16 05:59 Dose: 650 mg Acetylcysteine (Acetylcysteine 20%) 4 ml IH RQ6 [facility] Last Admin: 11/07/16 07:25 Dose: Not Given Alprazolam (Xanax) 0.25 mg PO DAILY [facility] Stop: 11/12/16 09:01 Last Admin: 11/07/16 09:00 Dose: 0.25 mg Amlodipine Besylate (Norvasc) 5 mg PO DAILY [facility] Last Admin: 11/07/16 08:58 Dose: 5 mg Atorvastatin Calcium (Lipitor) 40 mg PO HS [facility] Last Admin: 11/06/16 21:00 Dose: 40 mg Cholecalciferol (Vitamin D) 2,000 iu PO DAILY [facility] Last Admin: 11/07/16 08:59 Dose: 2,000 iu Clonidine HCl (Catapres) 0.1 mg PO Q12 [facility] Last Admin: 11/07/16 08:58 Dose: 0.1 mg Hydralazine HCl (Apresoline) 100 mg PO Q8 [facility] Last Admin: 11/07/16 05:57 Dose: 100 mg Levalbuterol HCl (Xopenex) 0.63 mg IH RQ6 [facility] Last Admin: 11/07/16 07:25 Dose: Not Given Levetiracetam (Keppra) 500 mg PO BID [facility] Last Admin: 11/07/16 08:57 Dose: 500 mg Magnesium Oxide (Mag-Ox) 400 mg PO DAILY [facility] Last Admin: 11/07/16 08:57 Dose: 400 mg Metoprolol Tartrate (Lopressor) 25 mg PO Q12 [facility] Last Admin: 11/07/16 08:57 Dose: 25 mg Pantoprazole Sodium (Protonix Ec Tab) 40 mg PO BID [facility] Last Admin: 11/07/16 08:57 Dose: 40 mg Temazepam (Restoril) 15 mg PO HS PRN PRN Reason: Insomnia Last Admin: 11/06/16 21:50 Dose: 15 mg - Labs Labs: 11/02/16 06:25 11/02/16 06:25 - Constitutional Appears: No Acute Distress - Head Exam Head Exam: ATRAUMATIC - Eye Exam Eye Exam: absent: Scleral icterus - ENT Exam ENT Exam: Mucous Membranes Moist - Neck Exam Neck Exam: absent: Meningismus - Respiratory Exam Respiratory Exam: absent: Rhonchi, Wheezes, Respiratory Distress - Cardiovascular Exam Cardiovascular Exam: REGULAR RHYTHM, +S1, +S2 - GI/Abdominal Exam GI & Abdominal Exam: Soft. absent: Tenderness - Rectal Exam Rectal Exam: Deferred - Neurological Exam Neurological Exam: Alert, Oriented x3 - Psychiatric Exam Psychiatric exam: Normal Affect - Skin Skin Exam: Dry, Intact Assessment and Plan - Assessment and Plan (Free Text) Plan: 61 yo female with history of COPD, CAD, HTN, Chronic Kidney Disease and Depression admitted at [facility] because of Acute Right Parietal hemorrhage sustained after a fall. She was transferred to [facility] for continuation of PT/OT in Acute Rehab. 1. Right Parietal Hematoma continue Keppra 500mg PO BID for seizure prophylaxis neurology and neurosurgion were consulted and no surgical intervention was recommended continue PT/OT 2. COPD asymptomatic Xopenex via nebulizer as needed 3. HTN BP stable continue Norvasc, Clonidine, Hydralazine and Metoprolol 4. HLD continue Lipitor 40mg PO HS 5. CKD Creatinine stable at 1.5 6. CAD continue Metoprolol and Lipitor antiplatelets held because of cerebral hematoma
[2016-11-08] MEDS: Levalbuterol 0.63 MG/3 ML Inhal Soln UD IH SCH ×4 (01:46→19:16)
[2016-11-08] MEDS: Acetylcysteine 20% Inhal Soln (4ml) IH SCH ×4 (01:46→19:16)
[2016-11-08] MEDS: Magnesium Oxide 400 mg Tab UD PO SCH (08:32)
[2016-11-08] MEDS: Pantoprazole 40 mg EC Tab PO SCH ×2 (08:32→17:25)
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
--- NOTE | 2016-11-08 14:21 | CP.PCM.CON ---
History of Present Illness - History of Present Illness History of Present Illness: Mrs. Soler is a 61-year-old woman with a past medical history of CAD, HTN, CKD , who had a traumatic appearing intraparenchymal hemorrhage with slight subarachnoid component. I had originally met the patient when she presented to [facility] with headache and left side weakness. She was managed in the ICU and improved significantly. She is now in acute rehab, where I saw her today as an initial consult. She did not complain of headache, but was complaining of it earlier today. It responded to Tylenol. Currently, she is complaining of feeling cold and is wearing a heavy sweater. She did not have a fever, but has shivering at times. She denied nausea, vomiting, new weakness or sensory changes. Review of Systems - Review of Systems All systems: reviewed and no additional remarkable complaints except Past Patient History - Infectious Disease Hx of Infectious Diseases: None - Tetanus Immunizations Tetanus Immunization: Unknown - Past Medical History & Family History Past Medical History?: Yes - Past Social History Smoking Status: Quit - CARDIAC Hx Cardiac Disorders: Yes Hx Hypertension: Yes - PULMONARY Hx Chronic Obstructive Pulmonary Disease (COPD): Yes - NEUROLOGICAL Hx Neurological Disorder: Yes (10/27/16 Intracranial hemorrhage) - HEENT Hx HEENT Problems: Yes Other/Comment: Wears glasses for reading and distance - RENAL Hx Chronic Kidney Disease: Yes (Chronic kidney disease) - ENDOCRINE/METABOLIC Hx Endocrine Disorders: No - HEMATOLOGICAL/ONCOLOGICAL Hx Anemia: Yes - INTEGUMENTARY Hx Dermatological Problems: No - MUSCULOSKELETAL/RHEUMATOLOGICAL Hx Falls: Yes Hx Rhabdomyolysis: Yes Other/Comment: - Chronic back pain - GASTROINTESTINAL Hx Gastrointestinal Disorders: Yes Hx Colostomy: Yes (had colostomy reveral) Other/Comment: - Diverticulitis. - Fistula. - Small bowel obstruction. - GERD. - Colitis - GENITOURINARY/GYNECOLOGICAL Hx Genitourinary Disorders: No (UTI) Hx Reproductive Disorders: No - PSYCHIATRIC Hx Anxiety: Yes Hx Depression: Yes Other/Comment: - Hx. of overuse of opiates/benzodiazipines for pain/anxiety - SURGICAL HISTORY Hx Surgeries: Yes Other/Comment: - Colostomy. - Colostomy reversal. - Hernia repair. - Spinal ( low back) surgery - ANESTHESIA Hx Anesthesia: Yes Hx Anesthesia Reactions: No Hx Malignant Hyperthermia: No Has any member of the family had a problem w/ anesthesia?: No Meds Allergies/Adverse Reactions: Allergies Allergy/AdvReac Type Severity Reaction Status Date / Time cortisone Allergy Severe PAIN Verified 11/02/16 00:41 zolpidem Allergy Severe Severe Verified 11/02/16 00:41 nightmares - Medications Medications: Current Medications Acetaminophen (Tylenol 325mg Tab) 650 mg PO Q6 PRN PRN Reason: Fever >100.4 F Acetaminophen (Tylenol 325mg Tab) 650 mg PO Q6 PRN PRN Reason: .Pain (scale 4-10) or Headache Last Admin: 11/08/16 08:29 Dose: 650 mg Acetylcysteine (Acetylcysteine 20%) 4 ml IH RQ6 [facility] Last Admin: 11/08/16 07:30 Dose: 4 ml Alprazolam (Xanax) 0.25 mg PO Q12 PRN PRN Reason: Anxiety Stop: 11/15/16 21:01 Amlodipine Besylate (Norvasc) 5 mg PO DAILY [facility] Last Admin: 11/08/16 08:31 Dose: 5 mg Atorvastatin Calcium (Lipitor) 40 mg PO HS [facility] Last Admin: 11/07/16 21:17 Dose: 40 mg Cholecalciferol (Vitamin D) 2,000 iu PO DAILY [facility] Last Admin: 11/08/16 08:31 Dose: 2,000 iu Clonidine HCl (Catapres) 0.1 mg PO Q12 [facility] Last Admin: 11/08/16 08:30 Dose: Not Given Hydralazine HCl (Apresoline) 100 mg PO Q8 [facility] Last Admin: 11/08/16 06:09 Dose: 100 mg Levalbuterol HCl (Xopenex) 0.63 mg IH RQ6 [facility] Last Admin: 11/08/16 07:30 Dose: 0.63 mg Levetiracetam (Keppra) 500 mg PO BID [facility] Last Admin: 11/08/16 08:31 Dose: 500 mg Magnesium Oxide (Mag-Ox) 400 mg PO DAILY [facility] Last Admin: 11/08/16 08:32 Dose: 400 mg Metoprolol Tartrate (Lopressor) 25 mg PO Q12 [facility] Last Admin: 11/08/16 08:32 Dose: 25 mg Pantoprazole Sodium (Protonix Ec Tab) 40 mg PO BID [facility] Last Admin: 11/08/16 08:32 Dose: 40 mg Trazodone HCl (Desyrel) 50 mg PO HS [facility] Physical Exam - Constitutional Appears: Well - Head Exam Head Exam: ATRAUMATIC, NORMAL INSPECTION, NORMOCEPHALIC - Eye Exam Eye Exam: EOMI, Normal appearance, PERRL - ENT Exam ENT Exam: Mucous Membranes Moist, Normal Exam - Neck Exam Neck exam: Positive for: Normal Inspection - Respiratory Exam Respiratory Exam: Clear to Auscultation Bilateral, NORMAL BREATHING PATTERN - Cardiovascular Exam Cardiovascular Exam: REGULAR RHYTHM, +S1, +S2 - GI/Abdominal Exam GI & Abdominal Exam: Normal Bowel Sounds, Soft. absent: Tenderness - Rectal Exam Rectal Exam: Deferred - Extremities Exam Extremities exam: Positive for: normal inspection - Neurological Exam Neurological exam: Abnormal Gait, CN II-XII Intact, Oriented x3 - Expanded Neurological Exam Expanded Patient oriented to: person, place, time Cranial nerves: EOM's Intact: Normal, Facial Palsey w/o Forehead Movement: Normal, Nystagmus: Normal Ataxia: No Cerebellar Function: Finger to Nose: Abnormal Left, Heel to Serrano: Abnormal Left Upper motor neuron: Babinski Sign: Abnormal Left, Pronator Drift: Abnormal Left Sensory exam: Lower Extremity Light Touch: Normal, Lower Extremity Pin Prick: Normal, Upper Extremity Light Touch: Normal, Upper Extremity Pin Prick: Normal Neuro motor strength exam: Left Upper Extremity: 4, Right Upper Extremity: 5, Left Lower Extremity: 4, Right Lower Extremity: 5 DTR: Bicep Left: 3+, Bicep Right: 2+, Brachioradialis Left: 3+, Brachioradialis Right: 2+, Patellar Left: 3+, Patellar Right: 2+, Tricep Left: 3+, Tricep Right : 2+ - Psychiatric Exam Psychiatric exam: Depressed - Skin Skin Exam: Dry, Intact, Normal Color, Warm Results - Vital Signs Recent Vital Signs: Last Vital Signs Temp 97.7 F 11/08/16 08:18 Pulse 60 11/08/16 08:32 Resp 18 11/08/16 08:18 BP 115/55 L 11/08/16 08:32 Pulse Ox 100 11/08/16 08:18 - Labs Result Diagrams: 11/02/16 06:25 11/02/16 06:25 Assessment & Plan (1) Intracranial hemorrhage Assessment and Plan: Clinically, the patient is improved, but still has left sided deficits as well as some neglect. She continues to have some difficulty with reading. Will repeat CT head as an outpatient to follow resolution of the blood products. Will D/C Keppra, since she has not had any seizure activity and it has been over one week. Continue PT/OT and speech therapy. She will be started on Trazodone for depression and insomnia per psych. I agree, may also consider fluoxetine per the FLAME trial to improve motor function. This should be discussed with psych as well. May consider amantadine if she continues to have decreased motivation despite antidepressant and stopping Keppra. Thank you. Status: Acute Priority: High (2) Leukocytosis Status: Acute
[2016-11-09] MEDS: Acetylcysteine 20% Inhal Soln (4ml) IH SCH ×4 (01:03→19:21)
[2016-11-09] MEDS: Levalbuterol 0.63 MG/3 ML Inhal Soln UD IH SCH ×4 (01:03→19:21)
[2016-11-09] MEDS: Magnesium Oxide 400 mg Tab UD PO SCH (08:34)
[2016-11-09] MEDS: Pantoprazole 40 mg EC Tab PO SCH ×2 (08:34→17:38)
--- NOTE | 2016-11-09 12:32 | CP.PCM.PN ---
Subjective - Date & Time of Evaluation Date of Evaluation: 11/09/16 Time of Evaluation: 12:21 - Subjective Subjective: Mrs. Soler was seen and examined today while she sat in her wheelchair. She was found in NAD, having lunch. She had her PT/OT today and was able to participate well. She did not have any complaints. There have been no reported seizure-like events since Keppra was stopped. Objective - Vital Signs/Intake and Output Vital Signs (last 24 hours): Temp Pulse Resp BP Pulse Ox 98.3 F 84 19 147/79 95 11/09/16 08:19 11/09/16 08:19 11/09/16 08:19 11/09/16 08:35 11/09/16 08:19 - Medications Medications: Current Medications Acetaminophen (Tylenol 325mg Tab) 650 mg PO Q6 PRN PRN Reason: Fever >100.4 F Acetaminophen (Tylenol 325mg Tab) 650 mg PO Q6 PRN PRN Reason: .Pain (scale 4-10) or Headache Last Admin: 11/09/16 06:12 Dose: 650 mg Acetylcysteine (Acetylcysteine 20%) 4 ml IH RQ6 [facility] Last Admin: 11/09/16 01:03 Dose: Not Given Alprazolam (Xanax) 0.25 mg PO Q12 PRN PRN Reason: Anxiety Stop: 11/15/16 21:01 Amlodipine Besylate (Norvasc) 5 mg PO DAILY [facility] Last Admin: 11/09/16 08:34 Dose: 5 mg Atorvastatin Calcium (Lipitor) 40 mg PO HS [facility] Last Admin: 11/08/16 21:04 Dose: 40 mg Cholecalciferol (Vitamin D) 2,000 iu PO DAILY [facility] Last Admin: 11/09/16 08:35 Dose: 2,000 iu Clonidine HCl (Catapres) 0.1 mg PO Q12 [facility] Last Admin: 11/09/16 08:35 Dose: 0.1 mg Hydralazine HCl (Apresoline) 100 mg PO Q8 [facility] Last Admin: 11/09/16 05:53 Dose: 100 mg Levalbuterol HCl (Xopenex) 0.63 mg IH RQ6 [facility] Last Admin: 11/09/16 07:26 Dose: Not Given Magnesium Oxide (Mag-Ox) 400 mg PO DAILY [facility] Last Admin: 11/09/16 08:34 Dose: 400 mg Metoprolol Tartrate (Lopressor) 25 mg PO Q12 [facility] Last Admin: 11/09/16 08:33 Dose: 25 mg Pantoprazole Sodium (Protonix Ec Tab) 40 mg PO BID [facility] Last Admin: 11/09/16 08:34 Dose: 40 mg Trazodone HCl (Desyrel) 50 mg PO HS [facility] Last Admin: 11/08/16 21:03 Dose: 50 mg - Labs Labs: 11/02/16 06:25 11/02/16 06:25 - Neurological Exam Neurological Exam: Abnormal Gait, Awake, CN II-XII Intact, Oriented x3 Neuro motor strength exam: Left Upper Extremity: 4, Right Upper Extremity: 5, Left Lower Extremity: 4, Right Lower Extremity: 5 Additional comments: Neurologically unchanged compared with previous examination. Assessment and Plan (1) Intracranial hemorrhage Assessment & Plan: Continue current management per primary rehab team and monitor neurologic function for improvement. Patient may follow up with vascular neurology two weeks after discharge from acute rehab. No need for AED. Status: Acute (2) Leukocytosis Status: Acute
--- NOTE | 2016-11-09 15:15 | CP.PCM.PN ---
Subjective - Date & Time of Evaluation Date of Evaluation: 11/09/16 Time of Evaluation: 15:00 - Subjective Subjective: patient with generalized weakness Objective - Vital Signs/Intake and Output Vital Signs (last 24 hours): Temp Pulse Resp BP Pulse Ox 98.3 F 67 19 124/62 95 11/09/16 08:19 11/09/16 13:15 11/09/16 08:19 11/09/16 13:15 11/09/16 08:19 - Medications Medications: Current Medications Acetaminophen (Tylenol 325mg Tab) 650 mg PO Q6 PRN PRN Reason: Fever >100.4 F Acetaminophen (Tylenol 325mg Tab) 650 mg PO Q6 PRN PRN Reason: .Pain (scale 4-10) or Headache Last Admin: 11/09/16 14:29 Dose: 650 mg Acetylcysteine (Acetylcysteine 20%) 4 ml IH RQ6 [facility] Last Admin: 11/09/16 13:04 Dose: Not Given Alprazolam (Xanax) 0.25 mg PO Q12 PRN PRN Reason: Anxiety Stop: 11/15/16 21:01 Amlodipine Besylate (Norvasc) 5 mg PO DAILY [facility] Last Admin: 11/09/16 08:34 Dose: 5 mg Atorvastatin Calcium (Lipitor) 40 mg PO HS [facility] Last Admin: 11/08/16 21:04 Dose: 40 mg Cholecalciferol (Vitamin D) 2,000 iu PO DAILY [facility] Last Admin: 11/09/16 08:35 Dose: 2,000 iu Clonidine HCl (Catapres) 0.1 mg PO Q12 [facility] Last Admin: 11/09/16 08:35 Dose: 0.1 mg Hydralazine HCl (Apresoline) 100 mg PO Q8 [facility] Last Admin: 11/09/16 13:15 Dose: 100 mg Levalbuterol HCl (Xopenex) 0.63 mg IH RQ6 [facility] Last Admin: 11/09/16 13:04 Dose: Not Given Magnesium Oxide (Mag-Ox) 400 mg PO DAILY [facility] Last Admin: 11/09/16 08:34 Dose: 400 mg Metoprolol Tartrate (Lopressor) 25 mg PO Q12 [facility] Last Admin: 11/09/16 08:33 Dose: 25 mg Pantoprazole Sodium (Protonix Ec Tab) 40 mg PO BID [facility] Last Admin: 11/09/16 08:34 Dose: 40 mg Trazodone HCl (Desyrel) 50 mg PO HS [facility] Last Admin: 11/08/16 21:03 Dose: 50 mg - Labs Labs: 11/02/16 06:25 11/02/16 06:25 - Head Exam Head Exam: ATRAUMATIC, NORMAL INSPECTION, NORMOCEPHALIC - Eye Exam Eye Exam: EOMI, Normal appearance, PERRL Pupil Exam: NORMAL ACCOMODATION - Neck Exam Neck Exam: Normal Inspection - Respiratory Exam Respiratory Exam: NORMAL BREATHING PATTERN - Cardiovascular Exam Cardiovascular Exam: REGULAR RHYTHM - GI/Abdominal Exam GI & Abdominal Exam: Normal Bowel Sounds - Rectal Exam Rectal Exam: NORMAL INSPECTION - Exam External exam: NORMAL EXTERNAL EXAM - Extremities Exam Extremities Exam: Normal Capillary Refill - Neurological Exam Neurological Exam: Alert, Awake Neuro motor strength exam: Left Upper Extremity: 3, Right Upper Extremity: 3, Left Lower Extremity: 3, Right Lower Extremity: 3 - Psychiatric Exam Psychiatric exam: Normal Affect, Normal Mood - Skin Skin Exam: Normal Color Assessment and Plan (1) Abdominal pain Status: Acute (2) Altered mental state Status: Acute (3) Intracranial hemorrhage Assessment & Plan: plan for physical, occupational and rec therapy for team conference Status: Acute (4) Leukocytosis Status: Acute (5) NSTEMI (non-ST elevated myocardial infarction) Status: Acute (6) Chronic obstructive lung disease Status: Chronic (7) Syncope Status: Suspected
--- NOTE | 2016-11-09 15:18 | CP.PCM.PN ---
Subjective - Date & Time of Evaluation Date of Evaluation: 11/08/16 Time of Evaluation: 14:10 - Subjective Subjective: no acute complaints at present Objective - Vital Signs/Intake and Output Vital Signs (last 24 hours): Temp Pulse Resp BP Pulse Ox 98.3 F 67 19 124/62 95 11/09/16 08:19 11/09/16 13:15 11/09/16 08:19 11/09/16 13:15 11/09/16 08:19 - Medications Medications: Current Medications Acetaminophen (Tylenol 325mg Tab) 650 mg PO Q6 PRN PRN Reason: Fever >100.4 F Acetaminophen (Tylenol 325mg Tab) 650 mg PO Q6 PRN PRN Reason: .Pain (scale 4-10) or Headache Last Admin: 11/09/16 14:29 Dose: 650 mg Acetylcysteine (Acetylcysteine 20%) 4 ml IH RQ6 [facility] Last Admin: 11/09/16 13:04 Dose: Not Given Alprazolam (Xanax) 0.25 mg PO Q12 PRN PRN Reason: Anxiety Stop: 11/15/16 21:01 Amlodipine Besylate (Norvasc) 5 mg PO DAILY [facility] Last Admin: 11/09/16 08:34 Dose: 5 mg Atorvastatin Calcium (Lipitor) 40 mg PO HS [facility] Last Admin: 11/08/16 21:04 Dose: 40 mg Cholecalciferol (Vitamin D) 2,000 iu PO DAILY [facility] Last Admin: 11/09/16 08:35 Dose: 2,000 iu Clonidine HCl (Catapres) 0.1 mg PO Q12 [facility] Last Admin: 11/09/16 08:35 Dose: 0.1 mg Hydralazine HCl (Apresoline) 100 mg PO Q8 [facility] Last Admin: 11/09/16 13:15 Dose: 100 mg Levalbuterol HCl (Xopenex) 0.63 mg IH RQ6 [facility] Last Admin: 11/09/16 13:04 Dose: Not Given Magnesium Oxide (Mag-Ox) 400 mg PO DAILY [facility] Last Admin: 11/09/16 08:34 Dose: 400 mg Metoprolol Tartrate (Lopressor) 25 mg PO Q12 [facility] Last Admin: 11/09/16 08:33 Dose: 25 mg Pantoprazole Sodium (Protonix Ec Tab) 40 mg PO BID [facility] Last Admin: 11/09/16 08:34 Dose: 40 mg Trazodone HCl (Desyrel) 50 mg PO HS [facility] Last Admin: 11/08/16 21:03 Dose: 50 mg - Labs Labs: 11/02/16 06:25 11/02/16 06:25 - Head Exam Head Exam: ATRAUMATIC, NORMAL INSPECTION, NORMOCEPHALIC - Eye Exam Eye Exam: EOMI, Normal appearance, PERRL Pupil Exam: NORMAL ACCOMODATION - ENT Exam ENT Exam: Mucous Membranes Moist, Normal Exam - Respiratory Exam Respiratory Exam: NORMAL BREATHING PATTERN - Cardiovascular Exam Cardiovascular Exam: REGULAR RHYTHM - GI/Abdominal Exam GI & Abdominal Exam: Normal Bowel Sounds - Rectal Exam Rectal Exam: NORMAL INSPECTION - Exam External exam: NORMAL EXTERNAL EXAM Bimanual exam: NORMAL BIMANUAL EXAM - Back Exam Back Exam: NORMAL INSPECTION - Neurological Exam Neurological Exam: Alert, Awake Neuro motor strength exam: Left Upper Extremity: 3, Right Upper Extremity: 3, Left Lower Extremity: 3, Right Lower Extremity: 3 - Skin Skin Exam: Dry, Intact Assessment and Plan (1) Abdominal pain Status: Acute (2) Altered mental state Status: Acute (3) Intracranial hemorrhage Assessment & Plan: range of motion, stregnthening transfers and gait training, monior bowel, bladder and skin Status: Acute (4) Leukocytosis Status: Acute (5) NSTEMI (non-ST elevated myocardial infarction) Status: Acute (6) Chronic obstructive lung disease Status: Chronic (7) Syncope Status: Suspected
[2016-11-10] MEDS: Acetylcysteine 20% Inhal Soln (4ml) IH SCH ×4 (01:03→19:39)
[2016-11-10] MEDS: Levalbuterol 0.63 MG/3 ML Inhal Soln UD IH SCH ×4 (01:03→19:39)
[2016-11-10] MEDS: Magnesium Oxide 400 mg Tab UD PO SCH (08:59)
[2016-11-10] MEDS: Pantoprazole 40 mg EC Tab PO SCH ×2 (09:00→17:26)
--- NOTE | 2016-11-10 09:35 | CP.PCM.PN ---
Subjective - Date & Time of Evaluation Date of Evaluation: 11/10/16 Time of Evaluation: 09:34 - Subjective Subjective: patient doing well no complaints at this time tolerating physical therapy well NAD HD STABLE Objective - Vital Signs/Intake and Output Vital Signs (last 24 hours): Temp Pulse Resp BP Pulse Ox 97.9 F 75 20 142/77 96 11/09/16 21:11 11/10/16 09:06 11/09/16 21:11 11/10/16 09:06 11/09/16 21:11 GEN: WDWN, alert, cooperative HEENT: NCAT, PERRL, EOMI NECK: supple, no JVD, no lymphadenopathy CARDIAC: +S1S2 RRR LUNG: CTAB No WRR ABD: SOFT NT ND BSX4 NO MASSES NO HSM EXT: +pedal pulses strength unchanged NEURO: AAOx3 SKIN warm, dry PSYCH normal mood, normal affect - Medications Medications: Current Medications Acetaminophen (Tylenol 325mg Tab) 650 mg PO Q6 PRN PRN Reason: Fever >100.4 F Acetaminophen (Tylenol 325mg Tab) 650 mg PO Q6 PRN PRN Reason: .Pain (scale 4-10) or Headache Last Admin: 11/10/16 09:01 Dose: 650 mg Acetylcysteine (Acetylcysteine 20%) 4 ml IH RQ6 [facility] Last Admin: 11/10/16 07:25 Dose: Not Given Alprazolam (Xanax) 0.25 mg PO Q12 PRN PRN Reason: Anxiety Stop: 11/15/16 21:01 Amlodipine Besylate (Norvasc) 5 mg PO DAILY [facility] Last Admin: 11/10/16 08:58 Dose: 5 mg Atorvastatin Calcium (Lipitor) 40 mg PO HS [facility] Last Admin: 11/09/16 21:42 Dose: 40 mg Cholecalciferol (Vitamin D) 2,000 iu PO DAILY [facility] Last Admin: 11/10/16 09:00 Dose: 2,000 iu Clonidine HCl (Catapres) 0.1 mg PO Q12 [facility] Last Admin: 11/10/16 09:06 Dose: 0.1 mg Hydralazine HCl (Apresoline) 100 mg PO Q8 [facility] Last Admin: 11/10/16 06:00 Dose: 100 mg Levalbuterol HCl (Xopenex) 0.63 mg IH RQ6 [facility] Last Admin: 11/10/16 07:25 Dose: Not Given Magnesium Oxide (Mag-Ox) 400 mg PO DAILY [facility] Last Admin: 11/10/16 08:59 Dose: 400 mg Metoprolol Tartrate (Lopressor) 25 mg PO Q12 [facility] Last Admin: 11/10/16 08:59 Dose: 25 mg Pantoprazole Sodium (Protonix Ec Tab) 40 mg PO BID [facility] Last Admin: 11/10/16 09:00 Dose: 40 mg Trazodone HCl (Desyrel) 50 mg PO HS [facility] Last Admin: 11/09/16 21:43 Dose: 50 mg - Labs Labs: 11/02/16 06:25 11/02/16 06:25 Assessment and Plan - Assessment and Plan (Free Text) Plan: 61 yo female with history of COPD, CAD, HTN, Chronic Kidney Disease and Depression admitted at [facility] because of Acute Right Parietal hemorrhage sustained after a fall. She was transferred to [facility] for continuation of PT/OT in Acute Rehab. 1. Right Parietal Hematoma continue Keppra 500mg PO BID for seizure prophylaxis neurology and neurosurgion were consulted and no surgical intervention was recommended Neuro consult Dr. Garcia appreciated. May follow up with vascular neurosurgery 2 weeks after d/c from [place]. continue PT/OT 2. COPD asymptomatic Xopenex via nebulizer as needed 3. HTN BP stable continue Norvasc, Clonidine, Hydralazine and Metoprolol 4. HLD continue Lipitor 40mg PO HS 5. CKD Creatinine stable at 1.5 6. CAD continue Metoprolol and Lipitor antiplatelets held because of cerebral hematoma
--- NOTE | 2016-11-10 16:12 | PSY.TMCNF ---
Nursing - Vital Signs Vital Signs (Last 8 hours): Vital Signs 11/10/16 11/10/16 11/10/16 08:58 08:59 09:06 Temperature Pulse Rate 75 75 75 Respiratory Rate Blood Pressure 142/77 142/77 142/77 O2 Sat by Pulse Oximetry 11/10/16 11/10/16 10:00 14:23 Temperature 97.5 F L Pulse Rate 75 69 Respiratory 20 Rate Blood Pressure 142/77 158/83 H O2 Sat by Pulse 95 Oximetry Pain: 0 - Medications/Other Issues Comment: Pt at moderate nutritional risk. goals:1. Pt to consume 75-100% of meals (met, continue). 2. Pt will maintain within 2-3 lbs of current weight. Follow-up due on 11/15/2016 - Bladder Management Bladder Pattern: Normal Voiding Method: Toilet - Bowel Management Bowel Pattern: Normal - Goals/Time Frame Comments: Pt was seen awake and alert laying in bed. Pt agreeable to receive visit. Pt reported that she is very cold and at times was shivering. Earlier during therapy session, pt refused sweatshirt as pt reported, "It smelt weird." Pt had two blankets wrapped around her as well. Pt was able to initiate minimal leisure interests as pt reported all she does at home is watch television. Pt reported that she is having difficulty seeing anything as her reading glasses are missing. Pt continued to state, "It is frustrated not remembering a lot of things." Pt presented with flat affect although engaged in discussion throughout visit. Physical Therapy - Bed Mobility Bed Mobility: Contact Guard - Transfers Sit to Stand: Verbal Cues, Contact Guard - Ambulation Level of Assistance: Verbal Cues, Contact Guard Distance (ft.): 150 Assistive Devices: Rolling Walker - Stair Negotiation Stairs: Level of Assistance: Verbal Cues, Contact Guard Number of Stairs: 11 Handrails: Bilateral - Standing Balance Static Stand: Supervision Dynamic Stand: Contact Guard Assist, Minimal Assistance - Pain Comment: complaint of constant headache - Insight/Carryover Insight/Carryover: Fair - Patient/Family Education Comment: safety, fall prevention, compensatory strateiges - Assessment/Plan Assessment: Pt demonstrating increased independence with amb level txfers with close Supervision, however continues to require verbal cueing for hand placement and walker mgmt. Pt will require 24 hour assistance secondary to impaired insight, and decreased safety awareness - Goals Timeframe: 2 weeks Goals: MOD I toileting. MOD I toilet txfers. S bathing. S with shower txfers. MOD I UE dressing. MOD I LE dressing - Provider Therapist: Lisbet Mcleod PT, DPT License Number: [id number] Occupational Therapy - Arousal/Attention/Orientation Level of Consciousness: Awake, Alert Patient Orientation: Person, Place, Time - ADL/IADL Self Feeding: Modified Independent Grooming: Supervision, Verbal Cues, Set-up Help Bathing-Upper Extremity: Supervision, Verbal Cues, Set-up Help Bathing-Lower Extremity: Moderate Assistance Dressing-Upper Extremity: Minimal Assistance Dressing-Lower Extremity: Moderate Assistance - Sitting Balance Static Sitting: Independent with upper extremity support Dynamic Sitting: Requires supervision - Transfers Wheelchair to Bed Transfers: Minimal Assistance Toilet Transfers: Minimal Assistance Tub Transfers: Minimal Assistance - Upper Extremity Status Right Upper Extremity Comment: 4-/5, ROM WFL Left Upper Extremity Comment: 3+/5, ROM WFL. impaired dexterity - Pain Comment: complaint of constant headache - Insight/Carryover Insight/Carryover: Fair - Patient/Family Education Comment: safety, fall prevention, compensatory strateiges - Assessment/Plan Assessment: Pt demonstrating increased independence with amb level txfers with close Supervision, however continues to require verbal cueing for hand placement and walker mgmt. Pt will require 24 hour assistance secondary to impaired insight, and decreased safety awareness - Goals Timeframe: 2 weeks Goals: MOD I toileting. MOD I toilet txfers. S bathing. S with shower txfers. MOD I UE dressing. MOD I LE dressing - Provider Therapist: Denice Rodriguez License Number: [id number] Speech Therapy - Consult Information Patient on Program: Yes Medical Diagnosis: ICH Treatment Diagnosis: mild cognitive deficits - Assessment Problem Solving Impairment: Mild Memory Impairment: Mild - Plan Assessment: Pt demonstrating increased independence with amb level txfers with close Supervision, however continues to require verbal cueing for hand placement and walker mgmt. Pt will require 24 hour assistance secondary to impaired insight, and decreased safety awareness - Provider Therapist: Coreen Amaral License Number: [id number] Recreational Therapy - Participation Participation: Participates in Individual and/or Group Sessions - Attendance Attendance: 3-5 times per week - Activities Leisure Activities: Cards and Games - Socialization Level of Socialization: Initiates/interacts with caregivers but not with peer, Isolate by choice - Diversional Time Diversional Time: television, going outside - Assessment Assessment/Plan: Pt demonstrating increased independence with amb level txfers with close Supervision, however continues to require verbal cueing for hand placement and walker mgmt. Pt will require 24 hour assistance secondary to impaired insight, and decreased safety awareness - Provider Therapist: Shanti Diaz, [employer]OLDER #[id number] Nutrition - Current Diet Current Diet/ Supplement/ Feedings: Heart healthy - Appetite Percent Meal Consumed: 75-100% - Assessment/Goals/Time Frame Assessment/Goals/Time Frame: Pt at moderate nutritional risk. goals:1. Pt to consume 75-100% of meals (met, continue). 2. Pt will maintain within 2-3 lbs of current weight. Follow-up due on 11/15/2016 - Provider Provider: Zenaida Morales RD Case Management - Discharge Plan Discharge Plan: Home alone, Home with significant other/family Rehabilitation Plan - Discharge Plan Estimated Date of Discharge: 11/15/16 Discharge to: Subacute
--- NOTE | 2016-11-10 16:46 | CP.PCM.PN ---
Subjective - Date & Time of Evaluation Date of Evaluation: 11/10/16 Time of Evaluation: 16:44 - Subjective Subjective: Patient seen in room she is nervous discussed at length safety issues and alluded to possibility of not being able to d/c home but may need LASHA Objective - Vital Signs/Intake and Output Vital Signs (last 24 hours): Temp Pulse Resp BP Pulse Ox 97.5 F L 69 20 158/83 H 95 11/10/16 10:00 11/10/16 14:23 11/10/16 10:00 11/10/16 14:23 11/10/16 10:00 - Medications Medications: Current Medications Acetaminophen (Tylenol 325mg Tab) 650 mg PO Q6 PRN PRN Reason: Fever >100.4 F Acetaminophen (Tylenol 325mg Tab) 650 mg PO Q6 PRN PRN Reason: .Pain (scale 4-10) or Headache Last Admin: 11/10/16 09:01 Dose: 650 mg Acetylcysteine (Acetylcysteine 20%) 4 ml IH RQ6 [facility] Last Admin: 11/10/16 13:04 Dose: Not Given Alprazolam (Xanax) 0.25 mg PO Q12 PRN PRN Reason: Anxiety Stop: 11/15/16 21:01 Amlodipine Besylate (Norvasc) 5 mg PO DAILY [facility] Last Admin: 11/10/16 08:58 Dose: 5 mg Atorvastatin Calcium (Lipitor) 40 mg PO HS [facility] Last Admin: 11/09/16 21:42 Dose: 40 mg Cholecalciferol (Vitamin D) 2,000 iu PO DAILY [facility] Last Admin: 11/10/16 09:00 Dose: 2,000 iu Clonidine HCl (Catapres) 0.1 mg PO Q12 [facility] Last Admin: 11/10/16 09:06 Dose: 0.1 mg Hydralazine HCl (Apresoline) 100 mg PO Q8 [facility] Last Admin: 11/10/16 14:23 Dose: 100 mg Levalbuterol HCl (Xopenex) 0.63 mg IH RQ6 [facility] Last Admin: 11/10/16 13:04 Dose: Not Given Magnesium Oxide (Mag-Ox) 400 mg PO DAILY [facility] Last Admin: 11/10/16 08:59 Dose: 400 mg Metoprolol Tartrate (Lopressor) 25 mg PO Q12 [facility] Last Admin: 11/10/16 08:59 Dose: 25 mg Pantoprazole Sodium (Protonix Ec Tab) 40 mg PO BID [facility] Last Admin: 11/10/16 09:00 Dose: 40 mg Trazodone HCl (Desyrel) 50 mg PO [facility] Last Admin: 11/09/16 21:43 Dose: 50 mg - Labs Labs: 11/02/16 06:25 11/02/16 06:25
[2016-11-10] MEDS: guaiFENesin 100 mg/5 ml Syrup UD PO PRN (22:03)
[2016-11-11] MEDS: Levalbuterol 0.63 MG/3 ML Inhal Soln UD IH SCH ×4 (01:13→19:16)
[2016-11-11] MEDS: Acetylcysteine 20% Inhal Soln (4ml) IH SCH ×4 (01:13→19:16)
[2016-11-11] MEDS: guaiFENesin 100 mg/5 ml Syrup UD PO PRN ×2 (05:10→19:52)
[2016-11-11] MEDS: Pantoprazole 40 mg EC Tab PO SCH ×2 (08:10→16:59)
[2016-11-11] MEDS: Magnesium Oxide 400 mg Tab UD PO SCH (08:10)
--- NOTE | 2016-11-11 19:24 | CP.PCM.PN ---
Subjective - Date & Time of Evaluation Date of Evaluation: 11/11/16 Time of Evaluation: 19:23 - Subjective Subjective: patient seen in room with daughter present discussed at great length d/c plans and how she is doing and what she will need it looks like she will need a course of LASHA she is so very nervous and anxious ambulating 150' RW Objective - Vital Signs/Intake and Output Vital Signs (last 24 hours): Temp Pulse Resp BP Pulse Ox 97.4 F L 74 22 143/78 95 11/11/16 08:10 11/11/16 13:18 11/11/16 08:10 11/11/16 13:18 11/11/16 08:10 - Medications Medications: Current Medications Acetaminophen (Tylenol 325mg Tab) 650 mg PO Q6 PRN PRN Reason: Fever >100.4 F Acetaminophen (Tylenol 325mg Tab) 650 mg PO Q6 PRN PRN Reason: .Pain (scale 4-10) or Headache Last Admin: 11/11/16 14:00 Dose: 650 mg Acetylcysteine (Acetylcysteine 20%) 4 ml IH RQ6 [facility] Last Admin: 11/11/16 19:16 Dose: Not Given Alprazolam (Xanax) 0.25 mg PO Q12 PRN PRN Reason: Anxiety Stop: 11/15/16 21:01 Last Admin: 11/10/16 23:32 Dose: 0.25 mg Amlodipine Besylate (Norvasc) 5 mg PO DAILY [facility] Last Admin: 11/11/16 09:12 Dose: 5 mg Atorvastatin Calcium (Lipitor) 40 mg PO HS [facility] Last Admin: 11/10/16 21:28 Dose: 40 mg Cholecalciferol (Vitamin D) 2,000 iu PO DAILY [facility] Last Admin: 11/11/16 08:11 Dose: 2,000 iu Clonidine HCl (Catapres) 0.1 mg PO Q12 [facility] Last Admin: 11/11/16 09:12 Dose: 0.1 mg Guaifenesin (Robitussin) 100 mg PO Q6 PRN PRN Reason: Cough Last Admin: 11/11/16 05:10 Dose: 100 mg Hydralazine HCl (Apresoline) 100 mg PO Q8 [facility] Last Admin: 11/11/16 13:18 Dose: 100 mg Levalbuterol HCl (Xopenex) 0.63 mg IH RQ6 [facility] Last Admin: 11/11/16 19:16 Dose: Not Given Magnesium Oxide (Mag-Ox) 400 mg PO DAILY [facility] Last Admin: 11/11/16 08:10 Dose: 400 mg Metoprolol Tartrate (Lopressor) 25 mg PO Q12 [facility] Last Admin: 11/11/16 08:09 Dose: 25 mg Pantoprazole Sodium (Protonix Ec Tab) 40 mg PO BID [facility] Last Admin: 11/11/16 16:59 Dose: 40 mg Trazodone HCl (Desyrel) 50 mg PO HS [facility] Last Admin: 11/10/16 21:29 Dose: 50 mg - Labs Labs: 11/02/16 06:25 11/02/16 06:25
[2016-11-12] MEDS: Acetylcysteine 20% Inhal Soln (4ml) IH SCH ×4 (01:01→20:00)
[2016-11-12] MEDS: Levalbuterol 0.63 MG/3 ML Inhal Soln UD IH SCH ×4 (01:01→20:00)
[2016-11-12] MEDS: Pantoprazole 40 mg EC Tab PO SCH ×2 (08:25→16:52)
[2016-11-12] MEDS: Magnesium Oxide 400 mg Tab UD PO SCH (08:25)
[2016-11-12] MEDS: guaiFENesin 100 mg/5 ml Syrup UD PO PRN ×2 (08:26→21:44)
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
[2016-11-12] MEDS: Apap-Butalbital-Caffeine 325-50-40mg Tab PO PRN ×2 (16:51→20:51)
--- NOTE | 2016-11-12 17:26 | CP.PCM.PN ---
Subjective - Date & Time of Evaluation Date of Evaluation: 11/12/16 Time of Evaluation: 10:00 - Subjective Subjective: Pt seen and examined. Complained of feeling very depress and crying because she do not want to go to another alf or [facility]. She wanted to be sent home. Objective - Vital Signs/Intake and Output Vital Signs (last 24 hours): Temp Pulse Resp BP Pulse Ox 97.9 F 78 20 146/75 94 L 11/12/16 08:31 11/12/16 14:51 11/12/16 08:31 11/12/16 14:51 11/12/16 09:31 - Medications Medications: Current Medications Acetaminophen (Tylenol 325mg Tab) 650 mg PO Q6 PRN PRN Reason: Fever >100.4 F Acetaminophen (Tylenol 325mg Tab) 650 mg PO Q6 PRN PRN Reason: .Pain (scale 4-10) or Headache Last Admin: 11/12/16 08:17 Dose: 650 mg Acetaminophen/Butalbital/Caffeine (Fioricet) 1 tab PO Q4 PRN PRN Reason: Headache Last Admin: 11/12/16 16:51 Dose: 1 tab Acetylcysteine (Acetylcysteine 20%) 4 ml IH RQ6 [facility] Last Admin: 11/12/16 13:49 Dose: Not Given Alprazolam (Xanax) 0.25 mg PO Q12 PRN PRN Reason: Anxiety Stop: 11/15/16 21:01 Last Admin: 11/12/16 12:06 Dose: 0.25 mg Amlodipine Besylate (Norvasc) 5 mg PO DAILY [facility] Last Admin: 11/12/16 08:25 Dose: 5 mg Atorvastatin Calcium (Lipitor) 40 mg PO HS [facility] Last Admin: 11/11/16 21:45 Dose: 40 mg Cholecalciferol (Vitamin D) 2,000 iu PO DAILY [facility] Last Admin: 11/12/16 08:26 Dose: 2,000 iu Clonidine HCl (Catapres) 0.1 mg PO Q12 [facility] Last Admin: 11/12/16 08:24 Dose: Not Given Guaifenesin (Robitussin) 100 mg PO Q6 PRN PRN Reason: Cough Last Admin: 11/12/16 08:26 Dose: 100 mg Hydralazine HCl (Apresoline) 100 mg PO Q8 [facility] Last Admin: 11/12/16 14:51 Dose: 100 mg Levalbuterol HCl (Xopenex) 0.63 mg IH RQ6 [facility] Last Admin: 11/12/16 13:49 Dose: Not Given Magnesium Oxide (Mag-Ox) 400 mg PO DAILY [facility] Last Admin: 11/12/16 08:25 Dose: 400 mg Metoprolol Tartrate (Lopressor) 25 mg PO Q12 [facility] Last Admin: 11/12/16 08:24 Dose: 25 mg Pantoprazole Sodium (Protonix Ec Tab) 40 mg PO BID [facility] Last Admin: 11/12/16 16:52 Dose: 40 mg Trazodone HCl (Desyrel) 100 mg PO HS [facility] - Labs Labs: 11/02/16 06:25 11/02/16 06:25 - Constitutional Appears: No Acute Distress - Head Exam Head Exam: ATRAUMATIC - Eye Exam Eye Exam: absent: Scleral icterus - ENT Exam ENT Exam: Mucous Membranes Moist - Neck Exam Neck Exam: absent: Meningismus - Respiratory Exam Respiratory Exam: absent: Rhonchi, Wheezes, Respiratory Distress - Cardiovascular Exam Cardiovascular Exam: REGULAR RHYTHM, +S1, +S2 - GI/Abdominal Exam GI & Abdominal Exam: Soft. absent: Tenderness - Rectal Exam Rectal Exam: Deferred - Neurological Exam Neurological Exam: Alert, Oriented x3 - Psychiatric Exam Psychiatric exam: Depressed - Skin Skin Exam: Dry, Intact Assessment and Plan - Assessment and Plan (Free Text) Assessment: 61 yo female with history of COPD, CAD, HTN, Chronic Kidney Disease and Depression admitted at [facility] because of Acute Right Parietal hemorrhage sustained after a fall. She was transferred to [facility] for continuation of PT/OT in Acute Rehab. 1. Right Parietal Hematoma continue Keppra 500mg PO BID for seizure prophylaxis neurology and neurosurgion were consulted and no surgical intervention was recommended follow up with vascular neurosurgery after discharge from [place] continue PT/OT 2. COPD asymptomatic Xopenex via nebulizer as needed 3. HTN BP stable continue Norvasc, Clonidine, Hydralazine and Metoprolol 4. HLD continue Lipitor 40mg PO HS 5. CKD Creatinine stable at 1.6 repeat BMP in am 6. CAD continue Metoprolol and Lipitor antiplatelets held because of cerebral hematoma
[2016-11-13 00:59] VITALS: O2SAT 97
[2016-11-13] MEDS: Levalbuterol 0.63 MG/3 ML Inhal Soln UD IH SCH ×4 (01:05→19:01)
[2016-11-13] MEDS: Acetylcysteine 20% Inhal Soln (4ml) IH SCH ×4 (01:05→19:01)
[2016-11-13] MEDS: Apap-Butalbital-Caffeine 325-50-40mg Tab PO PRN ×3 (05:53→16:53)
[2016-11-13 08:03] VITALS: RESP 18; TEMP 97.7
[2016-11-13] MEDS: guaiFENesin 100 mg/5 ml Syrup UD PO PRN ×2 (09:01→22:16)
[2016-11-13] MEDS: Magnesium Oxide 400 mg Tab UD PO SCH (09:02)
[2016-11-13] MEDS: Pantoprazole 40 mg EC Tab PO SCH ×2 (09:02→16:54)
--- NOTE | 2016-11-13 18:44 | CP.PCM.PN ---
Subjective - Date & Time of Evaluation Date of Evaluation: 11/13/16 Time of Evaluation: 18:41 - Subjective Subjective: Patient seen in the room doing ok nervous looking to get home and we will try and make that happen for her Objective - Vital Signs/Intake and Output Vital Signs (last 24 hours): Temp Pulse Resp BP Pulse Ox 97.7 F 65 18 118/69 97 11/13/16 08:02 11/13/16 13:31 11/13/16 08:02 11/13/16 13:31 11/13/16 08:02 - Medications Medications: Current Medications Acetaminophen (Tylenol 325mg Tab) 650 mg PO Q6 PRN PRN Reason: Fever >100.4 F Acetaminophen (Tylenol 325mg Tab) 650 mg PO Q6 PRN PRN Reason: .Pain (scale 4-10) or Headache Last Admin: 11/13/16 01:34 Dose: 650 mg Acetaminophen/Butalbital/Caffeine (Fioricet) 1 tab PO Q4 PRN PRN Reason: Headache Last Admin: 11/13/16 16:53 Dose: 1 tab Acetylcysteine (Acetylcysteine 20%) 4 ml IH RQ6 [facility] Last Admin: 11/13/16 14:17 Dose: Not Given Alprazolam (Xanax) 0.25 mg PO Q12 PRN PRN Reason: Anxiety Stop: 11/15/16 21:01 Last Admin: 11/13/16 00:07 Dose: 0.25 mg Amlodipine Besylate (Norvasc) 5 mg PO DAILY [facility] Last Admin: 11/13/16 09:01 Dose: 5 mg Atorvastatin Calcium (Lipitor) 40 mg PO HS [facility] Last Admin: 11/12/16 21:40 Dose: 40 mg Cholecalciferol (Vitamin D) 2,000 iu PO DAILY [facility] Last Admin: 11/13/16 09:02 Dose: 2,000 iu Clonidine HCl (Catapres) 0.1 mg PO Q12 [facility] Last Admin: 11/13/16 09:02 Dose: 0.1 mg Guaifenesin (Robitussin) 100 mg PO Q6 PRN PRN Reason: Cough Last Admin: 11/13/16 09:01 Dose: 100 mg Hydralazine HCl (Apresoline) 100 mg PO Q8 [facility] Last Admin: 11/13/16 13:31 Dose: 100 mg Levalbuterol HCl (Xopenex) 0.63 mg IH RQ6 [facility] Last Admin: 11/13/16 14:17 Dose: Not Given Magnesium Oxide (Mag-Ox) 400 mg PO DAILY [facility] Last Admin: 11/13/16 09:02 Dose: 400 mg Metoprolol Tartrate (Lopressor) 25 mg PO Q12 [facility] Last Admin: 11/13/16 10:00 Dose: 25 mg Pantoprazole Sodium (Protonix Ec Tab) 40 mg PO BID [facility] Last Admin: 11/13/16 16:54 Dose: 40 mg Trazodone HCl (Desyrel) 100 mg PO HS [facility] Last Admin: 11/12/16 21:40 Dose: 100 mg - Labs Labs: 11/02/16 06:25 11/02/16 06:25
--- NOTE | 2016-11-13 19:41 | CP.PCM.PN ---
Subjective - Date & Time of Evaluation Date of Evaluation: 11/13/16 Time of Evaluation: 19:38 - Subjective Subjective: Mrs. Soler was seen and examined today in acute rehab. She was in bed and complained of a 5/10 headache that is on the right side, constant and throbbing at times. It did not respond to Fioricet, and Tylonol helps minimally. Objective - Vital Signs/Intake and Output Vital Signs (last 24 hours): Temp Pulse Resp BP Pulse Ox 97.7 F 65 18 118/69 97 11/13/16 08:02 11/13/16 13:31 11/13/16 08:02 11/13/16 13:31 11/13/16 08:02 - Medications Medications: Current Medications Acetaminophen (Tylenol 325mg Tab) 650 mg PO Q6 PRN PRN Reason: Fever >100.4 F Acetaminophen (Tylenol 325mg Tab) 650 mg PO Q6 PRN PRN Reason: .Pain (scale 4-10) or Headache Last Admin: 11/13/16 19:32 Dose: 650 mg Acetaminophen/Butalbital/Caffeine (Fioricet) 1 tab PO Q4 PRN PRN Reason: Headache Last Admin: 11/13/16 16:53 Dose: 1 tab Acetylcysteine (Acetylcysteine 20%) 4 ml IH RQ6 СВЕТЛАНА Last Admin: 11/13/16 19:01 Dose: Not Given Alprazolam (Xanax) 0.25 mg PO Q12 PRN PRN Reason: Anxiety Stop: 11/15/16 21:01 Last Admin: 11/13/16 00:07 Dose: 0.25 mg Amlodipine Besylate (Norvasc) 5 mg PO DAILY СВЕТЛАНА Last Admin: 11/13/16 09:01 Dose: 5 mg Atorvastatin Calcium (Lipitor) 40 mg PO HS СВЕТЛАНА Last Admin: 11/12/16 21:40 Dose: 40 mg Cholecalciferol (Vitamin D) 2,000 iu PO DAILY СВЕТЛАНА Last Admin: 11/13/16 09:02 Dose: 2,000 iu Clonidine HCl (Catapres) 0.1 mg PO Q12 СВЕТЛАНА Last Admin: 11/13/16 09:02 Dose: 0.1 mg Guaifenesin (Robitussin) 100 mg PO Q6 PRN PRN Reason: Cough Last Admin: 09/02/17 09:01 Dose: 100 mg Hydralazine HCl (Apresoline) 100 mg PO Q8 [facility] Last Admin: 11/13/16 13:31 Dose: 100 mg Levalbuterol HCl (Xopenex) 0.63 mg IH RQ6 [facility] Last Admin: 11/13/16 19:01 Dose: Not Given Magnesium Oxide (Mag-Ox) 400 mg PO DAILY [facility] Last Admin: 11/13/16 09:02 Dose: 400 mg Metoprolol Tartrate (Lopressor) 25 mg PO Q12 [facility] Last Admin: 11/13/16 10:00 Dose: 25 mg Pantoprazole Sodium (Protonix Ec Tab) 40 mg PO BID [facility] Last Admin: 11/13/16 16:54 Dose: 40 mg Trazodone HCl (Desyrel) 100 mg PO HS [facility] Last Admin: 11/12/16 21:40 Dose: 100 mg - Labs Labs: 11/02/16 06:25 11/02/16 06:25 - Neurological Exam Additional comments: Neurologically unchanged compared with previous examination. Assessment and Plan (1) Intracranial hemorrhage Assessment & Plan: Will repeat CT head to ensure that this bleed is not increasing in size and to ensure that this is not the reason for her headaches getting worse. Will continue Magnesium Oxide and dose it BID. Will give decadron 10 mg IV once if the CT scan is stable. Avoid Fioricet since this can cause medication overuse headache. Status: Acute (2) Leukocytosis Status: Acute
[2016-11-13] MEDS ORDERED: Magnesium Oxide 400 mg Tab UD PO SCH (21:00)
--- NOTE | 2016-11-13 21:09 | CT ---
EXAM: CT Head Without Intravenous Contrast EXAM DATE/TIME: 11/13/2016 7:33 PM CLINICAL HISTORY: 61 years old, female; Signs and symptoms; Other: Lester's; Patient HX: Lester's f/u. Sdh copd HTN ckd depression. Smoker/ drug abuser; Additional info: Rule out expansion of bleed TECHNIQUE: Axial computed tomography images of the head/brain without intravenous contrast. All CT scans at this facility use one or more dose reduction techniques, viz.: automated exposure control; ma/kV adjustment per patient size (including targeted exams where dose is matched to indication; i.e. head); or iterative reconstruction technique. Coronal and sagittal reformatted images were created and reviewed. COMPARISON: No relevant prior studies available. FINDINGS: LIMITATIONS: Mild streak/motion artifact. BRAIN: Oval shaped focus of hemorrhage again seen in the right parietal lobe. This is decreased in size and density compared to the prior CT, now measuring 2 x 1.2 cm maximally (previously 3.5 x 3.0 cm). Most likely, the findings represents resolving hemorrhage, although some component of interval acute bleeding is difficult to exclude. There is a moderate to large area low density edema throughout the right cerebral hemisphere, abutting the hemorrhage, which is increased compared to the previous exam. This mainly involves the parietal and posterior frontal lobes. It has an appearance most suggestive of vasogenic edema, involving the white matter and relatively sparing the cortex. Associated mass effect is mildly increased in the interim, with increasing effacement of the right lateral ventricle, and new slight midline shift to the left of 2 mm, at the level of the septum pellucidum. Areas of hypodensity seen in the white matter bilaterally, nonspecific in appearance, but most likely representing chronic small vessel ischemic changes, in a patient of this age Otherwise, no significant acute abnormality identified. Diffuse, age-related cortical atrophy and ventriculomegaly. No acute extra-axial fluid collections visualized. No additional, new areas of hemorrhage are seen in the brain. No evidence of basilar cistern effacement. VENTRICLES: See above. BONES/JOINTS: No acute fractures or other acute bony abnormality noted. SOFT TISSUES: No acute abnormality of the visualized soft tissues is seen. SINUSES: Visualized paranasal sinuses appear clear. MASTOID AIR CELLS: Mastoid air cells appear clear. IMPRESSION: - Compared to a head CT of 10/28/2016, there is worsening edema in the right cerebral hemisphere, with an appearance suspicious for vasogenic edema secondary to an underlying intracranial mass lesion. There is associated new 2 mm midline shift to the left. Followup MRI of the brain with gadolinium is recommended. - Persistence of a 2 x 1.2 cm intraparenchymal hematoma in the right parietal lobe. This is decreased in size and density compared to the prior CT, and it most likely represents resolving hemorrhage, although a component of interval acute bleeding is difficult to exclude. - See above for remaining findings.
[2016-11-13] MEDS ORDERED: Dexamethasone 10 MG in Sodium Chloride 0.9% 50 ML IV ONE (21:29)
[2016-11-13 22:31] LABS: BASO % 0.7 % (0.0-2.0); EOS # 0.1 K/uL (0.0-0.7); EOS % 1.4 % (0.0-4.0); LYMPH # 2.1 K/uL (1.0-4.3); LYMPH % 30.7 % (20.0-40.0); MEAN CELL VOLUME 91.4 fl (81.0-99.0); MEAN CORPUSCULAR HEMOGLOBIN 30.6 pg (27.0-31.0); MEAN CORPUSCULAR HGB CONC 33.5 g/dL (33.0-37.0); MEAN PLATELET VOLUME 8.4 fl (7.2-11.7); MONO # 0.6 K/uL (0.0-0.8); MONO % 8.6 % (0.0-10.0); NEUT % 58.6 % (50.0-75.0); RED CELL DISTRIBUTION WIDTH 14.2 % (11.5-14.5); WHITE BLOOD COUNT 6.8 K/uL (4.8-10.8)
[2016-11-13 22:38] LABS: ALB/GLOB RATIO 1.3 (1.0-2.1); BILIRUBIN,TOTAL 0.2 mg/dl (0.2-1.3); POTASSIUM 3.9 MMOL/L (3.6-5.0)
[2016-11-13 23:00] VITALS: BP 151/83; PULSE 74
[2016-11-14] MEDS: Acetylcysteine 20% Inhal Soln (4ml) IH SCH (01:08)
[2016-11-14] MEDS: Levalbuterol 0.63 MG/3 ML Inhal Soln UD IH SCH (01:08)
== END 2016-11-14 | disposition short-term general hospital (02) | DRG 57 ==
PROVIDERS: ADMIT Student in an Organized Health Care Education/Training Program; ATTEND Student in an Organized Health Care Education/Training Program
PROC: F07Z9FZ Gait Training/Functional Ambulation Treatment using Assistive, Adaptive, Supportive or Protective Equipment (ICD-10-PCS; principal; 2016-11-01)
PROC: F08Z4FZ Home Management Treatment using Assistive, Adaptive, Supportive or Protective Equipment (ICD-10-PCS; 2016-11-01)
PROC: F07M6FZ Therapeutic Exercise Treatment of Musculoskeletal System - Whole Body using Assistive, Adaptive, Supportive or Protective Equipment (ICD-10-PCS; 2016-11-02)
DX: I69.154 Hemiplegia and hemiparesis following nontraumatic intracerebral hemorrhage affecting left non-dominant side (principal); Z99.81 Dependence on supplemental oxygen; I12.9 Hypertensive chronic kidney disease with stage 1 through stage 4 chronic kidney disease, or unspecified chronic kidney disease; D72.829 Elevated white blood cell count, unspecified; N18.9 Chronic kidney disease, unspecified; I25.10 Atherosclerotic heart disease of native coronary artery without angina pectoris; J44.9 Chronic obstructive pulmonary disease, unspecified; K21.9 Gastro-esophageal reflux disease without esophagitis; F32.9 Major depressive disorder, single episode, unspecified; E78.5 Hyperlipidemia, unspecified; K57.90 Diverticulosis of intestine, part unspecified, without perforation or abscess without bleeding; G47.00 Insomnia, unspecified; F41.9 Anxiety disorder, unspecified; F17.200 Nicotine dependence, unspecified, uncomplicated; I25.2 Old myocardial infarction

== ENCOUNTER 2016-11-14 00:51 | Inpatient (IN) | payer MEDICARE, MEDICAID ==
[2016-11-14 02:23] VITALS: BMI 23.6
[2016-11-14] MEDS ORDERED: Dexamethasone 10 MG in Sodium Chloride 0.9% 50 ML IV ONE (02:30)
--- NOTE | 2016-11-14 02:37 | ED PDOC ---
HPI: General Adult Time Seen by Provider: 11/14/16 01:03 Chief Complaint (Nursing): Medical Clearance Chief Complaint (Provider): abnormal imaging History Per: Other (medical record) History/Exam Limitations: no limitations Onset/Duration Of Symptoms: Unknown Have you had recent travel within the past 21 days to any of the following countries: [place], [place], [place] or [place]?: No Recent Trauma: s/p fall Recently: Seen In ED, Hospitalized Additional History Per: Patient, Prior Records Additional Complaint(s): 61 y/o female from rehab here this morning for admission to telemetry. Patient is currently in rehab s/p fall with ICH after overdose on benzodiazepines. Her most recent CT showed worsening edema in the right cerebral hemisphere. She complains of chronic headache, but denies any acute pain. Drs. Garcia and Vernon are aware. Past Medical History Vital Signs: Last Vital Signs Temp 98.0 F 11/17/16 08:00 Pulse 57 L 11/17/16 08:00 Resp 18 11/17/16 08:00 BP 150/70 11/17/16 08:00 Pulse Ox 95 11/17/16 08:00 - Medical History PMH: Anemia, Anxiety, Arthritis, CAD (NSTEMI, s/p diagnostic cath about 1 month ago without stent placement), COPD, Depression, Diverticulitis (and diverticulosis), Emphysema, HTN, Hypercholesterolemia, Obstructive Bowel, Osteoporosis, Pneumonia, Post Traumatic Stress Disorder, Chronic Kidney Disease (Chronic kidney disease) Denies: HIV - Surgical History Surgical History: Endoscopy Denies: Pacemaker - Family History Family History: States: Unknown Family Hx - Immunization History Hx Tetanus Toxoid Vaccination: No Hx Influenza Vaccination: No Hx Pneumococcal Vaccination: No - Home Medications Home Medications: Ambulatory Orders Medication Instructions Recorded Doc-Q-Lac 1 tab PO TID 10/27/16 ALPRAZolam [Xanax] 0.25 mg PO Q12H PRN tab 11/01/16 Acetaminophen [Tylenol 325mg tab] 650 mg PO Q6 PRN 11/01/16 Acetylcysteine 20% 4 ml IH [id number] 11/01/16 Atorvastatin [Lipitor] 40 mg PO HS 11/01/16 Cholecalciferol [Vitamin D 1000 IU] 2,000 iu PO DAILY 11/01/16 Levalbuterol [Xopenex] 0.63 mg IH [id number] 11/01/16 Magnesium Oxide [Mag-Ox] 400 mg PO DAILY tab 11/01/16 Metoprolol Tartrate [Lopressor] 25 mg PO Q12 11/01/16 Pantoprazole Sodium [Protonix] 40 mg PO 0600,1600 11/01/16 Potassium Chloride [Klor-Con 10] [address] 11/01/16 amLODIPine [Norvasc] 5 mg PO DAILY tab 11/01/16 cloNIDine [clonidine HCl] 0.1 mg PO Q12 11/01/16 hydrALAZINE [Apresoline] 100 mg PO Q8 11/01/16 levETIRAcetam [Keppra] 500 mg PO BID tab 11/01/16 - Allergies Allergies/Adverse Reactions: Allergies Allergy/AdvReac Type Severity Reaction Status Date / Time cortisone Allergy Severe PAIN Verified 11/02/16 00:41 zolpidem Allergy Severe Severe Verified 11/02/16 00:41 nightmares Review of Systems ROS Statement: Except As Marked, All Systems Reviewed And Found Negative Neurological: Positive for: Headache Physical Exam - Physical Exam Appears: Positive for: Well, Non-toxic, No Acute Distress Skin: Positive for: Normal Color, Warm, Dry. Negative for: Diaphoresis Eye Exam: Positive for: Normal appearance, EOMI, PERRL. Negative for: Nystagmus Neck: Positive for: Normal, Painless ROM, Supple Cardiovascular/Chest: Positive for: Regular Rate, Rhythm, Chest Non Tender Respiratory: Positive for: Normal Breath Sounds Gastrointestinal/Abdominal: Positive for: Normal Exam, Bowel Sounds, Soft. Negative for: Tenderness Back: Positive for: Normal Inspection Extremity: Positive for: Normal ROM Neurologic/Psych: Positive for: Alert, roll skinner II-XII, Oriented, Mood/Affect (normal ), Cerebellar Tests (normal). Negative for: Motor/Sensory Deficits - Laboratory Results Result Diagrams: 11/17/16 06:00 11/17/16 06:00 Medical Decision Making Medical Decision Making: Impression and Plan: Spoke with Dr. Garcia neurologist who is familiar with pt who requested that the patient be admitted to telemetry and be given Decadron 10 mg . She will also have a MRI with and without contrast tomorrow morning. Hospital[facility] alerted to the patient's admission and will see her. [facility] Final Radiology Report with Addendum Call: [phone] assistance Online chat: [email or web address] Patient Name: MARK SAEZ (Age): 1955 61 Gender: F Date of Exam: 11/13/2016 Referring Physician: Kulwinder Garcia # of Images: [id number] Ordered As: CT HEAD W O CONTRAST Page 1 of 2 Addendum created by Winter Griffin MD on 11/13/2016 9:36 PM Eastern Time ([place] & [place]) THIS REPORT CONTAINS FINDINGS THAT MAY BE CRITICAL TO PATIENT CARE. The findings were verbally communicated via telephone conference with Dr. Junior at 9:35 PM EDT on 11/13/2016. The findings were acknowledged and understood. Initial Report created on 11/13/2016 9:09 PM Eastern Time ([place] & [place]) EXAM: CT Head Without Intravenous Contrast EXAM DATE/TIME: 11/13/2016 7:33 PM CLINICAL HISTORY: 61 years old, female; Signs and symptoms; Other: Lester's; Patient HX: Lester's f/u. Sdh copd HTN ckd depression. Smoker/ drug abuser; Additional info: Rule out expansion of bleed TECHNIQUE: Axial computed tomography images of the head/brain without intravenous contrast. All CT scans at this facility use one or more dose reduction techniques, viz.: automated exposure control; ma/kV adjustment per patient size (including targeted exams where dose is matched to indication; i.e. head); or iterative reconstruction technique. Coronal and sagittal reformatted images were created and reviewed. COMPARISON: No relevant prior studies available. FINDINGS: LIMITATIONS: Mild streak/motion artifact. BRAIN: Oval shaped focus of hemorrhage again seen in the right parietal lobe. This is decreased in size and density compared to the prior CT, now measuring 2 x 1.2 cm maximally ( previously 3.5 x 3.0 cm). Most likely, the findings represents resolving hemorrhage, although some component of interval acute bleeding is difficult to exclude. There is a moderate to large area low density edema throughout the right cerebral hemisphere, abutting the hemorrhage, which is increased compared to the previous exam. This mainly involves the parietal and posterior frontal lobes. It has an appearance most suggestive of vasogenic edema, involving the white matter and relatively sparing the cortex. Associated mass effect is mildly increased in the interim, with increasing effacement of the right lateral ventricle, and new slight midline shift to the left of 2 mm, at the level of the septum pellucidum. Areas of hypodensity seen in the white matter bilaterally, nonspecific in appearance, but most likely representing chronic small vessel ischemic changes, in a patient of this age Otherwise, no significant acute abnormality identified. Diffuse, age-related cortical atrophy and ventriculomegaly. No acute extra-axial fluid collections visualized. No additional, new areas of hemorrhage are seen in the brain. No evidence of basilar cistern effacement. VENTRICLES: See above. BONES/JOINTS: No acute fractures or other acute bony abnormality noted. SOFT TISSUES: No acute abnormality of the visualized soft tissues is seen. SINUSES: Visualized paranasal sinuses appear clear. MASTOID AIR CELLS: Mastoid air cells appear clear. IMPRESSION: - Compared to a head CT of 10/28/2016, there is worsening edema in the right cerebral hemisphere, with an appearance suspicious for vasogenic edema secondary to an underlying intracranial mass lesion. There is associated new 2 mm midline shift to the left. Followup MRI of the brain with gadolinium is recommended. - Persistence of a 2 x 1.2 cm intraparenchymal hematoma in the right parietal lobe. This is decreased in size and density compared to the prior CT, and it most likely represents resolving hemorrhage, although a component of interval acute bleeding is difficult to exclude. - See above for remaining findings. Thank you for allowing us to participate in the care of your patient. Dictated and Authenticated by: Winter Griffin MD 11/13/2016 9:09 PM Eastern Time ([place] & [place]) Scribe Attestation: Documented by Alison Wolfe acting as a scribe for Maximiliano Juárez MD. [employer] Attestation: All medical record entries made by the Scribe were at my direction and personally dictated by me. I have reviewed the chart and agree that the record accurately reflects my personal performance of the history, physical exam, medical decision making, and the department course for this patient. I have also personally directed, reviewed, and agree with the discharge instructions and disposition. Disposition - Clinical Impression Clinical Impression: Intracranial hemorrhage - Patient ED Disposition Is Patient to be Admitted: Yes - Disposition Disposition Time: 02:35 Condition: FAIR
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
[2016-11-14] MEDS: Levalbuterol 0.63 MG/3 ML Inhal Soln UD IH SCH ×3 (07:32→19:02)
[2016-11-14] MEDS: Pantoprazole 40 mg EC Tab PO SCH ×2 (07:35→16:35)
[2016-11-14] MEDS: Magnesium Oxide 400 mg Tab UD PO SCH (09:19)
[2016-11-14] MEDS: guaiFENesin 100 mg/5 ml Syrup UD PO PRN (09:21)
[2016-11-14 09:30] LABS: HEMATOCRIT 35.8 % (34.0-47.0); MEAN CELL VOLUME 90.1 fl (81.0-99.0); MEAN CORPUSCULAR HEMOGLOBIN 30.7 pg (27.0-31.0); MEAN CORPUSCULAR HGB CONC 34.1 g/dL (33.0-37.0); RED CELL DISTRIBUTION WIDTH 14.7 % (11.5-14.5); WHITE BLOOD COUNT 5.8 K/uL (4.8-10.8)
[2016-11-14 09:40] LABS: PARTIAL THROMBOPLASTIN TIME 24.7 Seconds (25.6-37.1)
[2016-11-14 09:42] LABS: CALCIUM 9.6 mg/dL (8.4-10.2); POTASSIUM 4.3 MMOL/L (3.6-5.0)
[2016-11-14] MEDS: Dexamethasone 4 MG in Sodium Chloride 0.9% 50 ML IVPB SCH ×2 (10:40→16:34)
--- NOTE | 2016-11-14 17:45 | CP.PCM.CON ---
History of Present Illness - History of Present Illness History of Present Illness: Mrs. Soler is a 61-year-old woman who is well known to me since I first met her in [facility] at which point she first presented with the right side intracerebral hemorrhage. She was doing well in acute rehab, but has been complaining of progressively worse headaches that were pressure-like and severe , mostly on the right side. A follow-up CT head was done and showed worsening vasogenic edema. She was transferred to the general medical unit for further evaluation and treatment of intracerebral edema. She was started on decardon 10 mg Q8 hours, and since then, the headache has improved significantly. Review of Systems - Review of Systems All systems: reviewed and no additional remarkable complaints except Past Patient History - Infectious Disease Hx of Infectious Diseases: None - Tetanus Immunizations Tetanus Immunization: Unknown - Past Medical History & Family History Past Medical History?: Yes - Past Social History Smoking Status: Former Smoker - CARDIAC Hx Cardiac Disorders: Yes Hx Hypercholesterolemia: Yes Hx Hypertension: Yes - PULMONARY Hx Respiratory Disorders: Yes Hx Chronic Obstructive Pulmonary Disease (COPD): Yes Hx Emphysema: Yes Hx Pneumonia: Yes - NEUROLOGICAL Hx Neurological Disorder: Yes (10/27/16 Intracranial hemorrhage) - HEENT Hx HEENT Problems: Yes - RENAL Hx Chronic Kidney Disease: Yes (Chronic kidney disease) Hx Dialysis: No - ENDOCRINE/METABOLIC Hx Endocrine Disorders: No - HEMATOLOGICAL/ONCOLOGICAL Hx Blood Disorders: Yes Hx AIDS: No Hx Anemia: Yes Hx Human Immunodeficiency Virus (HIV): No - INTEGUMENTARY Hx Dermatological Problems: No - MUSCULOSKELETAL/RHEUMATOLOGICAL Hx Musculoskeletal Disorders: Yes Hx Arthritis: Yes Hx Falls: Yes - GASTROINTESTINAL Hx Diverticulitis: Yes (and diverticulosis) - GENITOURINARY/GYNECOLOGICAL Hx Genitourinary Disorders: No (UTI) - PSYCHIATRIC Hx Psychophysiologic Disorder: Yes Hx Anxiety: Yes Hx Depression: Yes Hx Substance Use: No - SURGICAL HISTORY Hx Surgeries: Yes Hx Herniorrhaphy: Yes Other/Comment: - Colostomy. - Colostomy reversal. - Hernia repair. - Spinal ( low back) surgery - ANESTHESIA Hx Anesthesia: Yes Hx Anesthesia Reactions: No Hx Malignant Hyperthermia: No Has any member of the family had a problem w/ anesthesia?: No Meds Allergies/Adverse Reactions: Allergies Allergy/AdvReac Type Severity Reaction Status Date / Time cortisone Allergy Severe PAIN Verified 11/02/16 00:41 zolpidem Allergy Severe Severe Verified 11/02/16 00:41 nightmares - Medications Medications: Current Medications Acetaminophen (Tylenol 325mg Tab) 650 mg PO Q4 PRN PRN Reason: headache Last Admin: 11/14/16 16:36 Dose: 650 mg Amlodipine Besylate (Norvasc) 5 mg PO DAILY [facility] Last Admin: 11/14/16 09:20 Dose: 5 mg Atorvastatin Calcium (Lipitor) 40 mg PO HS [facility] Cholecalciferol (Vitamin D) 2,000 iu PO DAILY [facility] Last Admin: 11/14/16 09:22 Dose: 2,000 iu Clonidine HCl (Catapres) 0.1 mg PO Q12 [facility] Last Admin: 11/14/16 09:17 Dose: 0.1 mg Guaifenesin (Robitussin) 100 mg PO Q6 PRN PRN Reason: Cough Last Admin: 11/14/16 09:21 Dose: 100 mg Hydralazine HCl (Apresoline) 100 mg PO Q8 [facility] Last Admin: 11/14/16 16:34 Dose: 100 mg Dexamethasone 4 mg/ Sodium (Chloride) 51 mls @ 51 mls/hr IVPB Q8 [facility] Last Admin: 11/14/16 16:34 Dose: 51 mls/hr Levalbuterol HCl (Xopenex) 0.63 mg IH RQ6 [facility] Last Admin: 11/14/16 14:02 Dose: Not Given Magnesium Oxide (Mag-Ox) 400 mg PO DAILY [facility] Last Admin: 11/14/16 09:19 Dose: 400 mg Metoprolol Tartrate (Lopressor) 25 mg PO Q12 [facility] Last Admin: 11/14/16 09:18 Dose: 25 mg Ondansetron HCl (Zofran Inj) 4 mg IVP Q6 PRN PRN Reason: Nausea/Vomiting Pantoprazole Sodium (Protonix Ec Tab) 40 mg PO 0600,1600 [facility] Last Admin: 11/14/16 16:35 Dose: 40 mg Physical Exam - Constitutional Appears: Well - Head Exam Head Exam: ATRAUMATIC, NORMAL INSPECTION, NORMOCEPHALIC - Eye Exam Eye Exam: EOMI, Normal appearance, PERRL - ENT Exam ENT Exam: Mucous Membranes Moist, Normal Exam - Neck Exam Neck exam: Positive for: Normal Inspection - Respiratory Exam Respiratory Exam: Clear to Auscultation Bilateral, NORMAL BREATHING PATTERN - Cardiovascular Exam Cardiovascular Exam: REGULAR RHYTHM, +S1, +S2 - GI/Abdominal Exam GI & Abdominal Exam: Normal Bowel Sounds, Soft. absent: Tenderness - Extremities Exam Extremities exam: Positive for: normal inspection - Back Exam Back exam: NORMAL INSPECTION - Neurological Exam Neurological exam: Alert, CN II-XII Intact, Normal Gait, Oriented x3 - Expanded Neurological Exam Expanded Patient oriented to: person, place, time Cranial nerves: EOM's Intact: Normal, Facial Palsey w/o Forehead Movement: Normal, Gag Reflex: Normal Ataxia: No Cerebellar Function: Finger to Nose: Abnormal Left Sensory exam: Lower Extremity Light Touch: Abnormal Left, Lower Extremity Pin Prick: Abnormal Left, Upper Extremity Light Touch: Abnormal Left, Upper Extremity Pin Prick: Abnormal Left Neuro motor strength exam: Left Upper Extremity: 4, Right Upper Extremity: 5, Left Lower Extremity: 4, Right Lower Extremity: 5 DTR: Bicep Left: 3+, Bicep Right: 2+, Patellar Left: 3+, Patellar Right: 2+ - Psychiatric Exam Psychiatric exam: Depressed - Skin Skin Exam: Dry, Intact, Normal Color, Warm Results - Vital Signs Recent Vital Signs: Last Vital Signs Temp 99.3 F 11/14/16 15:39 Pulse 63 11/14/16 16:34 Resp 20 11/14/16 15:39 BP 156/74 H 11/14/16 16:34 Pulse Ox 95 11/14/16 15:39 - Labs Result Diagrams: 11/14/16 09:00 11/14/16 09:00 Labs: Laboratory Results - last 24 hr 11/14/16 11/14/16 11/14/16 09:00 09:00 09:00 WBC 5.8 RBC 3.98 Hgb 12.2 Hct 35.8 MCV 90.1 MCH 30.7 MCHC 34.1 RDW 14.7 H Plt Count 229 PT 10.2 INR 1.0 APTT 24.7 L Sodium 140 Potassium 4.3 Chloride 107 Carbon Dioxide 21 L Anion Gap 16 BUN 41 H Creatinine 1.7 H Est GFR ( Amer) 37 Est GFR (Non-Af Amer) 30 Random Glucose 206 H Calcium 9.6 - Imaging and Cardiology CT scan - head Status: Image reviewed by me, Report reviewed by me (Increased vasogenic edema and blood products in right parietal lobe. ) Assessment & Plan (1) Intracranial hemorrhage Assessment and Plan: Continue decadron 10 mg Q8 hours for vasogenic edema. Will obtain MRI of the brain with and without contrast to evaluate for possible underlying mass explaining the increased edema. Check serum glucose and manage hyperglycemia, manage potential GI side-effects of steroids with H2RA. DVT Px with SCD. PT/OT eval and treatment. Status: Acute Priority: High
[2016-11-14] MEDS: Apap-Butalbital-Caffeine 325-50-40mg Tab PO PRN (20:27)
[2016-11-15] MEDS: Dexamethasone 4 MG in Sodium Chloride 0.9% 50 ML IVPB SCH ×3 (00:47→16:01)
[2016-11-15] MEDS: Levalbuterol 0.63 MG/3 ML Inhal Soln UD IH SCH ×4 (01:06→19:57)
[2016-11-15] MEDS: Pantoprazole 40 mg EC Tab PO SCH ×2 (07:00→16:02)
[2016-11-15] MEDS: Magnesium Oxide 400 mg Tab UD PO SCH (09:41)
[2016-11-15] MEDS: Apap-Butalbital-Caffeine 325-50-40mg Tab PO PRN ×2 (09:46→15:53)
--- NOTE | 2016-11-15 10:26 | MRI ---
PROCEDURE: MRI BRAIN WITHOUT CONTRAST HISTORY: EDEMA ON CT,R/O MASS COMPARISON: Comparison made with CT scan brain 11/13/2016 TECHNIQUE: Multiplanar, multisequence MR images of the brain were obtained without intravenous contrast enhancement. FINDINGS: HEMORRHAGE: Current study re- demonstrates an elliptical shaped hemorrhage in the right parietal lobe which is surrounded by wide margin of vasogenic edema. The hemorrhage has increased in size measuring approximately 5.6cm ap x 8.2 t x 2.8cm cc. Hemorrhage and surrounding edema exert considerable mass effect with overlying sulcal effacement and marked compression inferior and anterior displacement of the right occipital horn - right atrium. No obvious underlying lesion is identified however the possibility of a small underlying vascular abnormality such is an AVM, cavernoma small metastatic lesion not completely excluded. . Atypical posttraumatic or hypertensive hemorrhage to be considered. DWI: No evidence of an acute or early subacute infarction. BRAIN PARENCHYMA: Surrounding edema about the aforementioned right parietal hemorrhage. Mild chronic periventricular white matter ischemic changes. There are also a few small lacunar-type infarcts scattered about the deep and subcortical white matter both cerebral hemispheres. . VENTRICLES: No obstructive hydrocephalus CRANIUM: Calvarium unremarkable ORBITS: Orbits and contents unremarkable. PARANASAL SINUSES/MASTOIDS: Clear VASCULAR SYSTEM: Visualized major vascular flow voids at skull base are patent. OTHER FINDINGS: None. IMPRESSION: Interval increase size right parietal hematoma with surrounding edema on. The hemorrhage and edema exert considerable mass effect with compression anterior and inferior compression of the right occipital horn/right atrium as well as overlying sulcal effacement. The possibility of an underlying lesion such is a small AVM or cavernoma not excluded. Underlying mass lesion such as metastatic deposit not completely excluded. Follow-up post-contrast MRI recommended when there has been some retraction of the hemorrhage and decreased edema and to date assess for underlying lesion. Atypical posttraumatic or hypertensive hemorrhage to be considered. Mild chronic white matter ischemic changes as above. Mild generalized volume loss. Note that these findings were discussed with Dr. Garcia at approximately 10:15 a.m. with written down and read back verification.
--- NOTE | 2016-11-15 16:27 | CP.PCM.PN ---
Subjective - Date & Time of Evaluation Date of Evaluation: 11/15/16 Time of Evaluation: 16:00 - Subjective Subjective: Pt seen and examined. Still with headache relieved with Tylenol and Fioricet. She wanted to go home and complained of not getting her sleeping meds at night. Objective - Vital Signs/Intake and Output Vital Signs (last 24 hours): Temp Pulse Resp BP Pulse Ox 99.0 F 68 20 154/69 H 96 11/15/16 15:59 11/15/16 16:02 11/15/16 15:59 11/15/16 16:02 11/15/16 15:59 - Medications Medications: Current Medications Acetaminophen (Tylenol 325mg Tab) 650 mg PO Q4 PRN PRN Reason: headache Last Admin: 11/15/16 12:08 Dose: 650 mg Acetaminophen/Butalbital/Caffeine (Fioricet) 1 tab PO Q4 PRN PRN Reason: Headache Last Admin: 11/15/16 15:53 Dose: 1 tab Amlodipine Besylate (Norvasc) 5 mg PO DAILY [facility] Last Admin: 11/15/16 09:41 Dose: 5 mg Atorvastatin Calcium (Lipitor) 40 mg PO HS [facility] Last Admin: 11/14/16 21:21 Dose: 40 mg Cholecalciferol (Vitamin D) 2,000 iu PO DAILY [facility] Last Admin: 11/15/16 09:41 Dose: 2,000 iu Clonidine HCl (Catapres) 0.1 mg PO Q12 [facility] Last Admin: 11/15/16 12:09 Dose: 0.1 mg Guaifenesin (Robitussin) 100 mg PO Q6 PRN PRN Reason: Cough Last Admin: 11/14/16 09:21 Dose: 100 mg Hydralazine HCl (Apresoline) 100 mg PO Q8 [facility] Last Admin: 11/15/16 16:02 Dose: 100 mg Dexamethasone 4 mg/ Sodium (Chloride) 51 mls @ 51 mls/hr IVPB Q8 [facility] Last Admin: 11/15/16 16:01 Dose: 51 mls/hr Levalbuterol HCl (Xopenex) 0.63 mg IH RQ6 [facility] Last Admin: 11/15/16 14:37 Dose: Not Given Magnesium Oxide (Mag-Ox) 400 mg PO DAILY [facility] Last Admin: 11/15/16 09:41 Dose: 400 mg Metoprolol Tartrate (Lopressor) 25 mg PO Q12 [facility] Last Admin: 11/15/16 09:42 Dose: 25 mg Ondansetron HCl (Zofran Inj) 4 mg IVP Q6 PRN PRN Reason: Nausea/Vomiting Pantoprazole Sodium (Protonix Ec Tab) 40 mg PO 0600,1600 [facility] Last Admin: 11/15/16 16:02 Dose: 40 mg - Labs Labs: 11/14/16 09:00 11/14/16 09:00 PT 10.2 Seconds (9.8-13.1) 11/14/16 09:00 INR 1.0 (0.9-1.2) 11/14/16 09:00 APTT 24.7 Seconds (25.6-37.1) L 11/14/16 09:00 - Constitutional Appears: No Acute Distress - Head Exam Head Exam: ATRAUMATIC - Eye Exam Eye Exam: absent: Scleral icterus - ENT Exam ENT Exam: Mucous Membranes Moist - Neck Exam Neck Exam: absent: Meningismus - Respiratory Exam Respiratory Exam: absent: Rhonchi, Wheezes, Respiratory Distress - Cardiovascular Exam Cardiovascular Exam: REGULAR RHYTHM, +S1, +S2 - GI/Abdominal Exam GI & Abdominal Exam: Soft. absent: Tenderness - Rectal Exam Rectal Exam: Deferred - Neurological Exam Neurological Exam: Alert, Oriented x3 - Psychiatric Exam Psychiatric exam: Normal Affect - Skin Skin Exam: Dry, Intact Assessment and Plan - Assessment and Plan (Free Text) Assessment: 61 yo female with history of COPD, CAD, HTN, Chronic Kidney Disease and Depression admitted at [facility] because of Acute Right Parietal hematoma sustained after a fall. She was transferred to [facility] for continuation of PT/OT in Acute Rehab. A follow up CT scan of the head showed worsening edema in the right cerebral hemisphere associated with midline shift to the left 1. Right Parietal Hematoma MRI of the brain showed increased right parietal hematoma with sorrounding edema with mass effect on right occipital horn/right atrium. Underlying mass lesion could not be excluded continue Keppra 500mg PO BID for seizure prophylaxis Dr Garcia, neurology consult, following patient continue Decadron 4mg IV q 8hrs 2. COPD asymptomatic Xopenex via nebulizer as needed 3. HTN BP stable continue Norvasc, Clonidine, Hydralazine and Metoprolol 4. HLD continue Lipitor 40mg PO HS 5. CKD Creatinine stable at 1.7 6. CAD continue Metoprolol and Lipitor antiplatelets held because of cerebral hematoma
[2016-11-16] MEDS: Dexamethasone 4 MG in Sodium Chloride 0.9% 50 ML IVPB SCH ×2 (00:19→08:16)
[2016-11-16] MEDS: Levalbuterol 0.63 MG/3 ML Inhal Soln UD IH SCH ×4 (03:30→19:14)
[2016-11-16] MEDS: Magnesium Oxide 400 mg Tab UD PO SCH (08:17)
[2016-11-16] MEDS: Pantoprazole 40 mg EC Tab PO SCH ×2 (08:17→16:36)
--- NOTE | 2016-11-16 11:44 | CP.PCM.PN ---
Subjective - Date & Time of Evaluation Date of Evaluation: 11/16/16 Time of Evaluation: 11:00 - Subjective Subjective: Feels better denies headache no dizziness wants to go home denies CP no SOB Pt is currently being monitored in Tele bec of increase in ICH a, with [id number] vasogenic edema and mass effect. Objective - Vital Signs/Intake and Output Vital Signs (last 24 hours): Temp Pulse Resp BP Pulse Ox 98.4 F 65 18 145/67 98 11/16/16 08:04 11/16/16 11:23 11/16/16 09:00 11/16/16 11:23 11/16/16 09:00 Intake and Output: 11/16/16 11/16/16 06:59 18:59 Intake Total 1340 Balance 1340 - Medications Medications: Current Medications Acetaminophen (Tylenol 325mg Tab) 650 mg PO Q4 PRN PRN Reason: headache Last Admin: 11/15/16 22:08 Dose: 650 mg Acetaminophen/Butalbital/Caffeine (Fioricet) 1 tab PO Q4 PRN PRN Reason: Headache Last Admin: 11/15/16 15:53 Dose: 1 tab Amlodipine Besylate (Norvasc) 10 mg PO DAILY [facility] Atorvastatin Calcium (Lipitor) 40 mg PO HS [facility] Last Admin: 11/15/16 21:06 Dose: 40 mg Cholecalciferol (Vitamin D) 2,000 iu PO DAILY [facility] Last Admin: 11/16/16 08:18 Dose: 2,000 iu Clonidine HCl (Catapres) 0.1 mg PO Q12 [facility] Last Admin: 11/16/16 08:19 Dose: 0.1 mg Dexamethasone (Decadron) 4 mg PO Q8 [facility] Last Admin: 11/16/16 11:08 Dose: 4 mg Guaifenesin (Robitussin) 100 mg PO Q6 PRN PRN Reason: Cough Last Admin: 11/14/16 09:21 Dose: 100 mg Hydralazine HCl (Apresoline) 100 mg PO Q8 [facility] Last Admin: 11/16/16 08:15 Dose: 100 mg Insulin Human Lispro (Humalog) 0 units SC ACHS СВЕТЛАНА PRN Reason: Protocol Levalbuterol HCl (Xopenex) 0.63 mg IH RQ6 [facility] Last Admin: 11/16/16 03:30 Dose: Not Given Magnesium Oxide (Mag-Ox) 400 mg PO DAILY [facility] Last Admin: 11/16/16 08:17 Dose: 400 mg Metoprolol Tartrate (Lopressor) 25 mg PO Q12 [facility] Last Admin: 11/16/16 08:17 Dose: 25 mg Ondansetron HCl (Zofran Inj) 4 mg IVP Q6 PRN PRN Reason: Nausea/Vomiting Pantoprazole Sodium (Protonix Ec Tab) 40 mg PO 0600,1600 [facility] Last Admin: 11/16/16 08:17 Dose: 40 mg - Labs Labs: 11/14/16 09:00 11/14/16 09:00 PT 10.2 Seconds (9.8-13.1) 11/14/16 09:00 INR 1.0 (0.9-1.2) 11/14/16 09:00 APTT 24.7 Seconds (25.6-37.1) L 11/14/16 09:00 - Constitutional Appears: No Acute Distress - Head Exam Head Exam: NORMAL INSPECTION, NORMOCEPHALIC - Eye Exam Eye Exam: EOMI, Normal appearance Pupil Exam: NORMAL ACCOMODATION - ENT Exam ENT Exam: Mucous Membranes Moist, Normal External Ear Exam - Neck Exam Neck Exam: Full ROM. absent: Meningismus - Respiratory Exam Respiratory Exam: NORMAL BREATHING PATTERN. absent: Wheezes, Respiratory Distress - Cardiovascular Exam Cardiovascular Exam: REGULAR RHYTHM, +S1, +S2 - GI/Abdominal Exam GI & Abdominal Exam: Soft, Normal Bowel Sounds. absent: Tenderness - Extremities Exam Extremities Exam: Full ROM, Normal Capillary Refill. absent: Calf Tenderness - Back Exam Back Exam: Full ROM. absent: CVA tenderness (L), CVA tenderness (R) - Neurological Exam Neurological Exam: Alert, Awake, CN II-XII Intact, Oriented x3 Neuro motor strength exam: Left Upper Extremity: 5, Right Upper Extremity: 5, Left Lower Extremity: 5, Right Lower Extremity: 5 - Psychiatric Exam Psychiatric exam: Normal Affect, Normal Mood - Skin Skin Exam: Dry, Normal Color, Warm Assessment and Plan - Assessment and Plan (Free Text) Assessment: 61 yo female with history of COPD, CAD, HTN, Chronic Kidney Disease and Depression admitted at [facility] because of Acute Right Parietal hematoma sustained after a fall. She was transferred to [facility] for continuation of PT/OT in Acute Rehab. A follow up CT scan of the head showed worsening edema in the right cerebral hemisphere associated with midline shift to the left 1. Right Parietal Hematoma MRI of the brain showed increased right parietal hematoma with surrounding edema with mass effect on right occipital horn/right atrium. Underlying mass lesion could not be excluded continue Keppra 500mg PO BID for seizure prophylaxis Dr Garcia, neurology consult, following patient Increase Decadron 10mg q [address] Garcia PT/OT Start low dose Levemir and accucheck with coverage while on decadron Protonix for GI proph 2. COPD chronic asymptomatic Xopenex via nebulizer as needed 3. HTN BP stable continue Norvasc, Clonidine, Hydralazine and Metoprolol 4. HLD continue Lipitor 40mg PO HS 5. CKD Creatinine stable at 1.7 6. CAD continue Metoprolol and Lipitor, no ASA bec of ICH DVT proph - SCD, no anticoag sec to ICH
[2016-11-16] MEDS: Insulin Lispro (humaLOG) 100 Units/ml Inj SC SCH ×3 (12:42→22:33)
[2016-11-16] MEDS: Apap-Butalbital-Caffeine 325-50-40mg Tab PO PRN (16:40)
[2016-11-16] MEDS ORDERED: Oxycodone/Acetaminophen 5/325 mg Tab PO ONE (20:34)
[2016-11-16] MEDS: guaiFENesin 100 mg/5 ml Syrup UD PO PRN (21:05)
--- NOTE | 2016-11-16 21:19 | PN ---
DATE: 11/16/2016 Neurology followup for Kishore Garcia MD CHIEF COMPLAINT: Followup for right parietal hematoma hemorrhage. SUBJECTIVE: The patient was seen and examined at bedside sitting in the chair. She has some mild left-sided weakness, which is from her underlying right parietal lobe hematoma. She has elevated BUN and creatinine. MRI of the brain showed interval increase in the size of the right parietal hematoma with surrounding edema. The hemorrhage and the edema extensively show mass effect and the compression of the anterior and inferior right occipital horns with overlying sulcal effacement, possible small AV malformation or cavernoma. Currently, the patient is sitting up in the chair, talking, following commands. I placed her on Keppra 500 mg p.o. b.i.d. for seizure prophylaxis. She was initially on the rehab floor and was brought down due to some worsening headaches. Her headaches are slightly better. She is on Decadron 10 mg p.o. q. 8 hours, started by Dr. Kishore Garcia, which has helped with her headaches as well as also is helping with the mass effect. Her blood pressures are currently stable. PAST MEDICAL HISTORY: History of right parietal lobe hemorrhage, COPD, chronic kidney disease, anemia, arthritis, hypertension and hypercholesterolemia. ALLERGIES: CORTISONE AND ZOLPIDEM. SOCIAL HISTORY: No listed drug use or ETOH abuse. REVIEW OF SYSTEMS: A 14-point review of systems negative except as in the HPI. FAMILY HISTORY: Noncontributory. MEDICATIONS: Reviewed by nurse reconciliation sheet. PHYSICAL EXAMINATION: VITAL SIGNS: Temperature 99.2, pulse rate 68, blood pressure 151/75, respiratory rate of 20, and oxygen saturation 95% via nasal cannula. GENERAL: The patient is sitting up in the chair, no acute distress. HEENT: Atraumatic and normocephalic. PERRLA. Extraocular muscles intact. NECK: Supple. No JVD. No adenopathy noted. LUNGS: Clear to auscultation. No adventitious sounds. HEART: S1 and S2, normal rate and rhythm. No murmurs, rubs, or gallops. ABDOMEN: Soft, nontender, and nondistended. Bowel sounds are present. EXTREMITIES: No clubbing. No cyanosis. Peripheral pulses 2+ bilaterally. NEUROLOGIC: The patient is alert and oriented to person, place, month, and year. Speech is fluent without any errors. Cranial nerves II through XII are intact. Motor exam: Moves all extremities equally. Toes are upgoing bilaterally. Motor exam has left-sided weakness 4/5 compared to the right as a result of right parietal lobe hemorrhage. Sensory exam: Light touch pinprick, proprioception, and vibration is intact. DTRs are 2+ throughout. Coordination of [id number] intact, difficult with the left upper extremity due to left-sided weakness. Gait is deferred for now. LABORATORY DATA: Blood sugar is just 129 today. ASSESSMENT AND PLAN: This is a 61-year-old woman with history of chronic obstructive pulmonary disease, coronary artery disease, hypertension, chronic kidney disease and depression who was admitted initially to [facility] for acute right parietal hematoma since she had sustained a fall. She was transferred to [facility] for acute rehabilitation and for physical therapy and occupational therapy, had worsening headaches; therefore, was sent to the medical floor, had an MRI of the brain, which showed an increase in the size of the right parietal hematoma with surrounding edema causing some mild mass effect and the compression of the anterior and inferior right occipital horns. It is likely the underlying lesion could be consistent with a small arteriovenous malformation versus cavernoma. At this time, she is on Decadron 10 mg q. 8 hours for vasogenic edema as well as to help decrease the headaches. No seizure like activities. She is clinically stable and conversing. She has residual left-sided weakness from this right parietal lobe hemorrhage. At this time we recommend, 1. A neurosurgical consultation for worsening mass effect on the right parietal lobe hematoma. 2. Keep blood pressure between 120 to 130 mmHg. 3. Continue with Decadron 10 mg IV q. 8 hours for vasogenic edema and headaches and monitor the glucose levels because she will be on the steroids. 4. Keppra 500 mg p.o. b.i.d. for seizure prophylaxis. 5. No antiplatelets for at least 4 weeks from the acute onset of bleed. 6. Continue PT and OT and acute rehab. At this time, continue current present medical management. Thank you for this followup. Ronald Porter MD [facility] # [id number]
[2016-11-16] MEDS: Insulin Detemir 100 Units/ml Inj SC SCH (22:37)
[2016-11-17] MEDS: Dexamethasone 4 MG in Sodium Chloride 0.9% 50 ML IVPB SCH ×3 (00:02→16:39)
[2016-11-17] MEDS: Levalbuterol 0.63 MG/3 ML Inhal Soln UD IH SCH ×4 (01:17→19:15)
[2016-11-17] MEDS: Pantoprazole 40 mg EC Tab PO SCH ×2 (06:22→16:36)
[2016-11-17 06:29] LABS: MEAN CELL VOLUME 90.8 fl (81.0-99.0); MEAN CORPUSCULAR HEMOGLOBIN 30.3 pg (27.0-31.0); MEAN CORPUSCULAR HGB CONC 33.3 g/dL (33.0-37.0); RED CELL DISTRIBUTION WIDTH 14.9 % (11.5-14.5); WHITE BLOOD COUNT 11.5 K/uL (4.8-10.8)
[2016-11-17 06:39] LABS: CALCIUM 8.6 mg/dL (8.4-10.2); POTASSIUM 4.7 MMOL/L (3.6-5.0)
--- NOTE | 2016-11-17 08:38 | PQF GENQUE ---
Dr. Chase, Traumatic versus Non-Traumatic Injury? OR:Unable to determine OR:Other explanation of clinical findings H and P: admitted to [facility] > 1 week ago after having a fall in the setting of high dose of benzodiazepines at home. She was found to have a R parietal ICH. She had been transferred here for acute rehab. This evening , neurology business sales consultant ordered a f/u [facility] which showed findings of worsening edema with mass- effect/midline shift. For this reason, patient is being transferred to telemetry from rehab. 11/16 attending progress note: MRI of the brain showed increased right parietal hematoma with surrounding edema with mass effect on right occipital horn/right atrium. Underlying mass lesion could not be excluded continue Keppra 500mg PO BID for seizure prophylaxis ;Dr Garcia, neurology consult, following patient ; Increase Decadron 10mg q 8 Neurology progress note : MRI of the brain, which showed an increase in the size of the right parietal hematoma with surrounding edemacausing some mild mass effect and the compression of the anterior and inferior right occipital horns. It is likely the underlying lesion could be consistent with a small arteriovenous malformation versus cavernoma. Continue with Decadron 10 mg IV q. 8 hours for vasogenic edema and headaches and monitor the glucose levels because she will be on the steroids. Keppra 500 mg p.o. b.i.d. for seizure prophylaxis. This form is a permanent part of the medical record Clarification of your documentation is requested to better reflect the severity of illness and intensity of treatment of your patient. Indicators present [] Specify: [] [] Specify: [] [] Specify: [] [] Specify: [] Location in the medical record that reflects the above clinical findings: [] Treatment Provided: [] PHYSICIAN'S RESPONSE Traumatic ICH Based on your medical judgment of the clinical indicators outlined above please clarify the following: [] Practitioner response [] If unable to determine, please check the box, sign and date. Present On Admission (POA) Indicator: [] Present at the time of admission [] Not present at the time of admission [] Clinically Undetermined In responding to this query, please exercise your independent professional judgment. The fact that a question is asked does not imply that any particular answer is desired or expected. Thank you for your clarification on this documentation. If you have any questions please call. * Thank you, Sujey Romo RN BSN ext. #[phone] MTDD
[2016-11-17] MEDS: Insulin Lispro (humaLOG) 100 Units/ml Inj SC SCH ×4 (08:47→23:18)
[2016-11-17] MEDS: Magnesium Oxide 400 mg Tab UD PO SCH (08:48)
[2016-11-17] MEDS: Apap-Butalbital-Caffeine 325-50-40mg Tab PO PRN ×2 (13:51→20:10)
--- NOTE | 2016-11-17 14:02 | CP.PCM.PN ---
Subjective - Date & Time of Evaluation Date of Evaluation: 11/17/16 Time of Evaluation: 13:30 - Subjective Subjective: Pt denies Hedach no dizziness no new neuro deficit no CP' no SOB no abd pain constipated Objective - Vital Signs/Intake and Output Vital Signs (last 24 hours): Temp Pulse Resp BP Pulse Ox 98.3 F 58 L 18 148/75 97 11/17/16 12:00 11/17/16 13:17 11/17/16 12:00 11/17/16 12:00 11/17/16 13:17 - Medications Medications: Current Medications Acetaminophen (Tylenol 325mg Tab) 650 mg PO Q4 PRN PRN Reason: headache Last Admin: 11/15/16 22:08 Dose: 650 mg Acetaminophen/Butalbital/Caffeine (Fioricet) 1 tab PO Q4 PRN PRN Reason: Headache Last Admin: 11/17/16 13:51 Dose: 1 tab Amlodipine Besylate (Norvasc) 10 mg PO DAILY [facility] Last Admin: 11/17/16 08:49 Dose: 10 mg Atorvastatin Calcium (Lipitor) 40 mg PO HS [facility] Last Admin: 11/16/16 21:09 Dose: 40 mg Cholecalciferol (Vitamin D) 2,000 iu PO DAILY [facility] Last Admin: 11/17/16 08:48 Dose: 2,000 iu Clonidine HCl (Catapres) 0.1 mg PO Q8 [facility] Last Admin: 11/17/16 09:16 Dose: Not Given Docusate Sodium (Colace) 100 mg PO BID [facility] Guaifenesin (Robitussin) 100 mg PO Q6 PRN PRN Reason: Cough Last Admin: 11/16/16 21:05 Dose: 100 mg Hydralazine HCl (Apresoline) 100 mg PO Q8 [facility] Last Admin: 11/17/16 08:46 Dose: 100 mg Dexamethasone 4 mg/ Sodium (Chloride) 51 mls @ 51 mls/hr IVPB Q8 [facility] Last Admin: 11/17/16 08:47 Dose: 51 mls/hr Dexamethasone 10 mg/ Sodium (Chloride) 51 mls @ 102 mls/hr IVPB Q8 [facility] Insulin Detemir (Levemir) 6 units [facility] Last Admin: 11/16/16 22:37 Dose: 6 units Insulin Human Lispro (Humalog) [address] [facility] PRN Reason: Protocol Last Admin: 11/17/16 11:58 Dose: 1 units Levalbuterol HCl (Xopenex) 0.63 mg IH RQ6 [facility] Last Admin: 11/17/16 08:10 Dose: Not Given Levetiracetam (Keppra) 500 mg PO BID [facility] Last Admin: 11/17/16 08:48 Dose: 500 mg Magnesium Oxide (Mag-Ox) 400 mg PO DAILY [facility] Last Admin: 11/17/16 08:48 Dose: 400 mg Metoprolol Tartrate (Lopressor) 25 mg PO Q12 [facility] Last Admin: 11/17/16 08:48 Dose: 25 mg Ondansetron HCl (Zofran Inj) 4 mg IVP Q6 PRN PRN Reason: Nausea/Vomiting Pantoprazole Sodium (Protonix Ec Tab) 40 mg PO 0600,1600 [facility] Last Admin: 11/17/16 06:22 Dose: 40 mg Trazodone HCl (Desyrel) 50 mg PO HS [facility] Last Admin: 11/17/16 00:01 Dose: 50 mg - Labs Labs: 11/17/16 06:00 11/17/16 06:00 PT 10.2 Seconds (9.8-13.1) 11/14/16 09:00 INR 1.0 (0.9-1.2) 11/14/16 09:00 APTT 24.7 Seconds (25.6-37.1) L 11/14/16 09:00 - Constitutional Appears: No Acute Distress - Head Exam Head Exam: NORMAL INSPECTION, NORMOCEPHALIC - Eye Exam Eye Exam: EOMI, Normal appearance Pupil Exam: NORMAL ACCOMODATION - ENT Exam ENT Exam: Mucous Membranes Moist, Normal External Ear Exam - Neck Exam Neck Exam: Full ROM. absent: Meningismus - Respiratory Exam Respiratory Exam: NORMAL BREATHING PATTERN. absent: Wheezes, Respiratory Distress - Cardiovascular Exam Cardiovascular Exam: REGULAR RHYTHM, +S1, +S2 - GI/Abdominal Exam GI & Abdominal Exam: Soft, Normal Bowel Sounds. absent: Tenderness - Extremities Exam Extremities Exam: Full ROM, Normal Capillary Refill. absent: Calf Tenderness - Back Exam Back Exam: Full ROM. absent: CVA tenderness (L), CVA tenderness (R) - Neurological Exam Neurological Exam: Alert, Awake, CN II-XII Intact, Oriented x3 Neuro motor strength exam: Left Upper Extremity: 5, Right Upper Extremity: 5, Left Lower Extremity: 5, Right Lower Extremity: 5 - Psychiatric Exam Psychiatric exam: Normal Affect, Normal Mood - Skin Skin Exam: Dry, Normal Color, Warm Assessment and Plan - Assessment and Plan (Free Text) Assessment: 61 yo female with history of COPD, CAD, HTN, Chronic Kidney Disease and Depression admitted at [facility] because of Acute Right Parietal hematoma sustained after a fall. She was transferred to [facility] for continuation of PT/OT in Acute Rehab. A follow up CT scan of the head showed worsening edema in the right cerebral hemisphere associated with midline shift to the left 1. Right Traumatic Parietal Hematoma MRI of the brain showed increased right parietal hematoma with surrounding edema with mass effect on right occipital horn/right atrium. continue Keppra 500mg PO BID for seizure prophylaxis Dr Garcia, neurology consulted Discussed case with dr Porter covering for Dr Garcia- rec Neurosurgery consult - dr Kwok was consulted cont IV decadron PT/OT consulted Start low dose Levemir and accucheck with coverage while on decadron Protonix for GI proph Discussed d/c planning with pt - refused to go back to [facility] , refused [facility] or TCU - want to go home and have PT at home 2. COPD chronic asymptomatic Xopenex via nebulizer as needed 3. HTN uncontrolled BP stable continue Norvasc, Clonidine, Hydralazine and Metoprolol Increase Cloniine to q 8 4. HLD continue Lipitor 40mg PO HS 5. CKD Creatinine stable at 1.7 6. CAD continue Metoprolol and Lipitor, no ASA bec of ICH DVT proph - SCD, no anticoag sec to ICH
--- NOTE | 2016-11-17 20:44 | PN ---
DATE: 11/17/2016 NEUROLOGY FOLLOWUP CHIEF COMPLAINT: She is actually followed for right parietal hematoma and hemorrhage. SUBJECTIVE: The patient was sitting up in the bed, in no acute distress. Headaches are less. She slept well. She is on tapering dose of steroids, on Decadron at 4 mg q. 8 hours a day. Neurosurgery has seen the patient but has not documented any note, but as mentioned according to the nurse, no neurosurgical intervention. Blood pressures are controlled, less headaches. PAST MEDICAL HISTORY: History of right parietal lobe hemorrhage, COPD, chronic kidney disease, arthritis, anemia, hypertension and hypercholesterolemia. ALLERGIES: CORTISONE AND ZOLPIDEM. SOCIAL HISTORY: No illicit drug use or EtOH abuse. REVIEW OF SYSTEMS: A 14-point review of systems negative except as in the HPI. PHYSICAL EXAMINATION: VITAL SIGNS: Temperature 98.3, pulse rate 57, blood pressure 148/75, respiratory rate 18, and oxygen saturation 97% by room air. GENERAL: The patient is sitting up in the bed, no acute distress. HEENT: Atraumatic and normocephalic. PERRLA. Extraocular muscles intact. NECK: Supple. No JVD. No adenopathy noted. LUNGS: Clear to auscultation. No adventitious sounds. HEART: S1 and S2, normal rate and rhythm. No murmurs, rubs, or gallops. ABDOMEN: Soft, nontender and nondistended. Bowel sounds are present. EXTREMITIES: No clubbing. No cyanosis. Peripheral pulses 2+ bilaterally. NEUROLOGIC: The patient is alert and oriented to person, place and year. Speech is fluent without any errors. Cranial nerves II through XII are intact. Motor exam has left-sided weakness, 4/5 compared to the right as a result of right parietal lobe hemorrhage. Sensory exam: Light touch pinprick, proprioception, and vibration is intact. DTRs are 2+ throughout. Coordination of [id number] intact. Difficult with the left upper extremity due to left-sided weakness. Gait is deferred for now. LABORATORY DATA: Sodium is 136, potassium 4.7, chloride 102, carbon dioxide 23, BUN of 55, creatinine 1.9 and random glucose 242. ASSESSMENT AND PLAN: This is a 61-year-old woman with history of chronic obstructive pulmonary disease, coronary artery disease, hypertension, chronic kidney disease, and depression, who was admitted to [facility] [place] for acute right parietal hematoma since she had sustained a fall. She was transferred to [facility] for acute rehab and physical therapy and occupational therapy and worsening headaches; therefore, was sent to the medical floor, had an MRI of the brain, which showed an increased size of the right parietal lobe hematoma with surrounding edema and mild mass effect, therefore, she was placed on Decadron 10 mg q. 8 hours of vasogenic edema which has been decreased today to 4 mg as well as to help her headaches. Currently, no seizure-like activity. She is clinically stable and conversing well. She has residual left-sided weakness from the right parietal lobe hemorrhage and neurosurgery has seen the patient. At this time we recommend; 1. Follow up with neurosurgical's recommendations. 2. Keep blood pressure between 120 to 130 mmHg. 3. Taper down her steroids to 2 mg p.o. q. 8 and eventually off over the next 2 weeks as an outpatient. 4. Continue Keppra mg p.o. b.i.d. for seizure prophylaxis. 5. No antiplatelets for at least 4 weeks from the acute onset of bleed and continue with outpatient home PT and OT. At this time, she is currently stable from my standpoint. Ronald Porter MD
[2016-11-17] MEDS: Insulin Detemir 100 Units/ml Inj SC SCH (23:18)
[2016-11-18] MEDS: Levalbuterol 0.63 MG/3 ML Inhal Soln UD IH SCH ×4 (01:00→19:06)
[2016-11-18] MEDS: Dexamethasone 4 MG in Sodium Chloride 0.9% 50 ML IVPB SCH ×3 (02:06→16:23)
[2016-11-18] MEDS: Apap-Butalbital-Caffeine 325-50-40mg Tab PO PRN (06:00)
[2016-11-18] MEDS: Pantoprazole 40 mg EC Tab PO SCH ×2 (06:42→16:24)
--- NOTE | 2016-11-18 07:23 | CON ---
DATE: 11/17/2016 HISTORY OF PRESENT ILLNESS: This is a 61-year-old lady with a host of medical problems that include hypertension. She was seen and admitted to [facility] about a week ago with a right posterior frontal hemorrhage. This stabilized, however, he came back with worsening headache. New CT and MRI were done which basically showed the hemorrhage with significant surrounding edema. Neurosurgical evaluation was requested. On presentation today, she states that she is asymptomatic, in fact, when specifically questioned, she denied even having a headache. She states she has no other neurological symptoms. PAST MEDICAL HISTORY: Reviewed in the EMR, most significant again is hypertension, but also has atherosclerotic heart disease, multiple other problems. MEDICATIONS: She is on multiple medications, we will document in the EMR. PHYSICAL EXAMINATION GENERAL: She is bright, awake, and alert. HEENT: Pupils are equal, reactive. EOMs are full. NEUROLOGIC: Cranial nerves are intact. She has no drift. She has 5/5 strength throughout. Sensory exam is grossly intact. Her gait is roughly within normal limits. LABORATORY DATA: The studies were reviewed and there is an intraparenchymal hematoma which only can be consistent with hypertensive hemorrhage, however, the possibilities of underlying lesion such as vascular malformation or tumor is certainly possible. My recommendation would be followup MRI with gadolinium in 6 to 8 weeks to evaluate the possibility of an underlying lesion. At this point in time, I certainly believe she is capable of being discharged. I gave her my card for followup. Bereket Kwok MD
[2016-11-18] MEDS: Insulin Lispro (humaLOG) 100 Units/ml Inj SC SCH ×3 (08:30→16:23)
[2016-11-18] MEDS: Magnesium Oxide 400 mg Tab UD PO SCH (09:29)
[2016-11-18] MEDS ORDERED: Dexamethasone 10 MG in Sodium Chloride 0.9% 50 ML IVPB SCH (10:32)
--- NOTE | 2016-11-18 11:39 | CP.PCM.DIS ---
Provider - Provider Date of Admission: 11/14/16 02:55 Attending physician: Edgar Junior MD Primary care physician: Dr Alanis Consults: Neurology Dr Garcia Neurosurgery : Dr Kwok Time Spent in preparation of Discharge (in minutes): 45 Diagnosis - Discharge Diagnosis (1) Intracranial hemorrhage Status: Acute Priority: High (2) HTN (hypertension) Status: Chronic (3) Chronic obstructive lung disease Status: Chronic Priority: Medium (4) CKD (chronic kidney disease), stage III Status: Chronic (5) CAD (coronary artery disease) Status: Chronic Hospital Course - Lab Results Lab Results: Most Recent Lab Values WBC 11.5 K/uL (4.8-10.8) H D 11/17/16 06:00 RBC 3.63 Mil/uL (3.80-5.20) L 11/17/16 06:00 Hgb 11.0 g/dL (12.0-16.0) L 11/17/16 06:00 Hct 33.0 % (34.0-47.0) L 11/17/16 06:00 MCV 90.8 fl (81.0-99.0) 11/17/16 06:00 MCH 30.3 pg (27.0-31.0) 11/17/16 06:00 MCHC 33.3 g/dL (33.0-37.0) 11/17/16 06:00 RDW 14.9 % (11.5-14.5) H 11/17/16 06:00 Plt Count 190 K/uL (130-400) 11/17/16 06:00 PT 10.2 Seconds (9.8-13.1) 11/14/16 09:00 INR 1.0 (0.9-1.2) 11/14/16 09:00 APTT 24.7 Seconds (25.6-37.1) L 11/14/16 09:00 Sodium 136 mmol/l (132-148) 11/17/16 06:00 Potassium 4.7 MMOL/L (3.6-5.0) 11/17/16 06:00 Chloride 102 mmol/L (98-107) 11/17/16 06:00 Carbon Dioxide 23 mmol/L (22-30) 11/17/16 06:00 Anion Gap 16 (10-20) 11/17/16 06:00 BUN 55 mg/dl (7-17) H 11/17/16 06:00 Creatinine 1.9 mg/dL (0.7-1.2) H 11/17/16 06:00 Est GFR ( Amer) 32 11/17/16 06:00 Est GFR (Non-Af Amer) 27 11/17/16 06:00 POC Glucose (mg/dL) 119 mg/dL (65-110) H 11/18/16 05:22 Random Glucose 242 mg/dL (65-105) H 11/17/16 06:00 Calcium 8.6 mg/dL (8.4-10.2) 11/17/16 06:00 - Hospital Course Hospital Course: 61 yo female with history of COPD, CAD, HTN, Chronic Kidney Disease and Depression admitted at [facility] because of Acute Right Parietal hematoma sustained after a fall. She was transferred to [facility] for continuation of PT/OT in Acute Rehab. A follow up CT scan of the head done in the Acute Rehab showed worsening edema in the right cerebral hemisphere associated with midline shift to the left . The patient was then transferred to the Telemetry Unit for close monitoring. Neurology and Neurosurgery consulted. No new deficit noted. 1. Right Traumatic Parietal Hematoma MRI of the brain showed increased right parietal hematoma with surrounding edema with mass effect on right occipital horn/right atrium. continue Keppra 500mg PO BID for seizure prophylaxis Dr Garcia, neurology consulted Discussed case with dr Porter covering for Dr Garcia- rec Neurosurgery consult - dr Kwok evaluated pt - no surgical intervention. cleared pt for discharge and rec rpt MRI of the Brain with Gadolinium in 6 wks Pt received IV decadron - will cont pt on taperimng dose of PO Decadron as outpt PT/OT consulted Started also on low dose Levemir and accucheck with coverage while on decadron Protonix for GI proph Pt refused to go back to Rehab , refused [facility] or TCU placement - wants to go home and have PT at home despite explanation of benefits. 2. COPD chronic asymptomatic Xopenex via nebulizer as needed 3. HTN uncontrolled BP stable continue Norvasc, Clonidine, Hydralazine and Metoprolol Increased Clonidine to 0.2 mg bid 4. Hyperlipidemia continue Lipitor 40mg PO HS 5. CKD stage III Creatinine stable at 1.7 6. CAD continue Metoprolol and Lipitor, no ASA bec of ICH DVT proph - SCD, no anticoag sec to ICH Discharge Exam - Head Exam Head Exam: NORMAL INSPECTION, NORMOCEPHALIC - Eye Exam Eye Exam: EOMI, Normal appearance Pupil Exam: NORMAL ACCOMODATION - ENT Exam ENT Exam: Mucous Membranes Moist, Normal External Ear Exam - Neck Exam Neck exam: Full Rom - Respiratory Exam Respiratory Exam: NORMAL BREATHING PATTERN. absent: Respiratory Distress - Cardiovascular Exam Cardiovascular Exam: REGULAR RHYTHM, +S1, +S2 - GI/Abdominal Exam GI & Abdominal Exam: Normal Bowel Sounds, Soft. absent: Tenderness - Extremities Exam Extremities exam: full ROM, normal capillary refill, pedal pulses present Additional comments: no calf tenderness - Back Exam Back exam: FULL ROM. absent: CVA tenderness (L), CVA tenderness (R) - Neurological Exam Neurological exam: Alert, CN II-XII Intact, Oriented x3, Reflexes Normal - Psychiatric Exam Psychiatric exam: Normal Affect, Normal Mood - Skin Skin Exam: Dry, Normal Color, Warm Discharge Plan - Discharge Medications Prescriptions: amLODIPine [Norvasc] 10 mg PO DAILY #30 tab Atorvastatin [Lipitor] 40 mg PO HS #30 cloNIDine [Catapres] 0.2 mg PO Q12 #60 tab Dexamethasone [Decadron] 2 mg PO Q8 #30 tab Docusate [Colace] 100 mg PO BID #60 cap Hydralazine HCl 100 mg PO Q8 #90 tablet levETIRAcetam [Keppra] 500 mg PO BID #60 tab Metoprolol Tartrate [Lopressor] 25 mg PO Q12 #60 Pantoprazole Sodium [Protonix] 40 mg PO 0600,1600 #30 traZODone [Desyrel] 50 mg PO HS #30 tab - Follow Up Plan Condition: GOOD Disposition: HOME/ ROUTINE Instructions: Subarachnoid Hemorrhage (DC), Hypertension (DC) Additional Instructions: ff up with PMD rylee after discharge ( Dr Alanis) Home PT/OT Appt with Dr Kwok in 2wks needs rpt MRI in 6 wks with Gadolinium appt with Dr Mai in 1-2 wks no ASA, no NSA(IDS No heavy lifting Referrals: Evangelist Alanis MD [Staff Provider] - Ronald Porter MD [Staff Provider] - Kulwinder Garcia MD [Medical Doctor] - Bereket Kwok MD [Staff Provider] - Clinical Quality Measures - CQM - Stroke Antithrombotic Prescribed: Medical Contraindication Present Contranindication/Reason for not providing: Other If Other selected, reason for not providing: ICH Anticoagulation Prescribed for Atrial Flutter, Atrial Fibrillation and History of:: Medical Contraindication Present Contranindication/Reason for not providing: Other Other Contraindication/Reason for not providing: ICH Statin prescribed: Yes
[2016-11-18] MEDS ORDERED: Lidocaine 5% Patch TD ONE (15:29)
[2016-11-18 15:37] VITALS: RESP 20
[2016-11-18 18:56] VITALS: BP 149/78; PULSE 73; TEMP 98.1; O2SAT 97
== END 2016-11-18 20:00 | disposition home or self-care (01) | DRG 82 ==
LOC: H.ER 00:51 → H.ERHOLD 02:55 → H.TEL 05:01
PROVIDERS: ADMIT Internal Medicine; ATTEND Internal Medicine
DX: S06.349A Traumatic hemorrhage of right cerebrum with loss of consciousness of unspecified duration, initial encounter (principal); G93.6 Cerebral edema; N18.3 Chronic kidney disease, stage 3 (moderate); W19.XXXA Unspecified fall, initial encounter; I12.9 Hypertensive chronic kidney disease with stage 1 through stage 4 chronic kidney disease, or unspecified chronic kidney disease; J43.9 Emphysema, unspecified; F32.9 Major depressive disorder, single episode, unspecified; I25.2 Old myocardial infarction; I25.10 Atherosclerotic heart disease of native coronary artery without angina pectoris; E78.00 Pure hypercholesterolemia, unspecified; Z98.61 Coronary angioplasty status; M81.0 Age-related osteoporosis without current pathological fracture; F41.9 Anxiety disorder, unspecified; R73.9 Hyperglycemia, unspecified; E78.5 Hyperlipidemia, unspecified; R53.1 Weakness